=== PATIENT | female | born 1985 | race African-American/Black ===

== ENCOUNTER 2017-10-14 13:13 | Emergency (ER) | payer SELFPAY ==
[2017-10-14 14:47] VITALS: PULSE 72; RESP 18; TEMP 36.2; O2SAT 98; BMI 46.2
--- NOTE | 2017-10-14 15:14 | HMH.EDUTC ---
[facility] [place] Impression: Sinusitis Qualifiers: Sinusitis location: other Chronicity: unspecified Qualified Code(s): J32.9 - Chronic sinusitis, unspecified Disposition: Home, Self-Care Condition on Discharge: Good Instructions: Sinusitis, Sinus Headache, Cough, DI for Sinusitis Additional Instructions: * Monitor Temp. Tylenol and/or Ibuprofen as needed. ER if fever is no less than 101 despite alternating Tylenol and Ibuprofen * Encourage fluids, water, Gatorade, powerade, pedialyte if /toddler/or child * Warm salt water gargles for throat irritation *Warm fluids *Sore throat lozenges *Sleep elevated *humidifier or vaporizer Lots of rest Increase fluids, water, Gatorade, powerade *Flonase 2 sprays each nostril daily but may take 2-3 days to notice improvement with it *Bromfed may cause drowsiness. Know how it effect you or your child. Before driving, caring for small children or sending your child to school *Your throat swab was sent to lab for culture. Those results area typically sent to your primary care physician. Be sure to follow up in 2-3 days if no improvement so they can review those results and treat if necessary If you dont have primary care I recommend you get one, but in the mean time you will have to return to a walk in clinic Follow up IMMEDIATELY for new or worsening of symptoms OR no noticeable improvement over the next 48-72 hours. 911 immediately for any life threatening symptoms such as chest pain or difficulty breathing Prescriptions: Amoxicillin/Potassium Clav [Augmentin 875-125 Tablet] 1 tab PO Q12H #14 tab Brompheniramine/Pseudoephed/Dm [Bromfed DM Cough Syrup 5mL] 10 ml PO Q4H PRN #200 syrup PRN Reason: Cough predniSONE [Prednisone 20mg Tab] 20 mg PO BID #10 tab Referrals: Jonathan Chen APRN [Primary Care Provider] - Time of Disposition: 15:22 Medical Decision Making Vital Signs: 10/14/17 14:47 Temperature 97.2 F L Temperature Source Temporal Artery Scan Pulse Rate [Right] 72 Respiratory Rate 18 02 Sat by Pulse Oximetry 98 - Lab Data Lab Results 10/14/17 14:56: Influenza Type A Ag Negative, Influenza Type B Ag Negative 10/14/17 14:56: Strep Scn Rapid [facility] Orders (Tests/Meds): ORDERS Category Date Time Status Strep Screen Confirmation Stat Micro 10/14/17 14:56 Received - Jakob Inquiry Pt receiving controlled substance: No Jakob was queried for this patient: No [facility] [place] - General Stated complaint: sore throat/ fever Mode of Arrival: Ambulatory Source of Information: Patient Limitations: No Limitations Description of Symptoms (Recalled from Triage Doc. by RN): SORE THROAT, FEVER 2 DAYS HEENT Symptoms (Recalled from RN notes): Yes Resp Symptoms (Recalled from RN notes): No Skin Symptoms (Recalled from RN notes): No MS Symptoms (Recalled from RN notes): No Functional Status (Recalled from RN notes): N - History of Present Illness Provider Complaint: Patient state that she has not felt well in 3 days now State that she has had a fever on and off that has been as high as 103.2 State that she was sent home from work today due to fever and advised that she needed to get checked for flu - Related Data Previous Rx's Medication Instructions Recorded Amoxicillin/Potassium Clav 1 tab PO Q12H #14 tab 10/14/17 [Augmentin 875-125 Tablet] Brompheniramine/Pseudoephed/Dm 10 ml PO Q4H PRN #200 syrup 10/14/17 [Bromfed DM Cough Syrup 5mL] predniSONE [Prednisone 20mg 20 mg PO BID #10 tab 10/14/17 Tab] Allergies Allergy/AdvReac Type Severity Reaction Status Date / Time No Known Allergies Allergy Unverified 09/29/17 14:44 - Worker's Comp Is this a Worker's Comp case?: No [facility] History - *Social History Alcohol Intake: never - Psychiatric History Expresses thoughts of harming self/others: None Suicide Plan Description: No Plan - Constitutional Reports chills, Reports fever(s) - ENT Reports nasal c
[2017-10-14 15:15] LABS: UTC Influenza A Antigen Negative (Negative); UTC Influenza B Antigen Negative (Negative)
--- NOTE | 2017-10-14 15:18 | ED_ITS ---
[facility] [place] Clinical Impression: Sinusitis Qualifiers: Sinusitis location: other Chronicity: unspecified Qualified Code(s): J32.9 - Chronic sinusitis, unspecified Disposition: Home, Self-Care Condition on Discharge: Good Instructions: Sinusitis, Sinus Headache, Cough, DI for Sinusitis Additional Instructions: * Monitor Temp. Tylenol and/or Ibuprofen as needed. ER if fever is no less than 101 despite alternating Tylenol and Ibuprofen * Encourage fluids, water, Gatorade, powerade, pedialyte if /toddler/or child * Warm salt water gargles for throat irritation *Warm fluids *Sore throat lozenges *Sleep elevated *humidifier or vaporizer Lots of rest Increase fluids, water, Gatorade, powerade *Flonase 2 sprays each nostril daily but may take 2-3 days to notice improvement with it *Bromfed may cause drowsiness. Know how it effect you or your child. Before driving, caring for small children or sending your child to school *Your throat swab was sent to lab for culture. Those results area typically sent to your primary care physician. Be sure to follow up in 2-3 days if no improvement so they can review those results and treat if necessary If you don? t have primary care I recommend you get one, but in the mean time you will have to return to a walk in clinic Follow up IMMEDIATELY for new or worsening of symptoms OR no noticeable improvement over the next 48-72 hours. 911 immediately for any life threatening symptoms such as chest pain or difficulty breathing Prescriptions: Amoxicillin/Potassium Clav [Augmentin 875-125 Tablet] 1 tab PO Q12H #14 tab Brompheniramine/Pseudoephed/Dm [Bromfed DM Cough Syrup 5mL] 10 ml PO Q4H PRN # 200 syrup PRN Reason: Cough predniSONE [Prednisone 20mg Tab] 20 mg PO BID #10 tab Referrals: Jonathan Chen APRN [Primary Care Provider] - Time of Disposition: 15:22 Medical Decision Making Vital Signs: 10/14/17 14:47 Temperature 97.2 F L Temperature Source Temporal Artery Scan Pulse Rate [Right] 72 Respiratory Rate 18 02 Sat by Pulse Oximetry 98 - Lab Data Lab Results 10/14/17 14:56: Influenza Type A Ag Negative, Influenza Type B Ag Negative 10/14/17 14:56: Strep Scn Rapid Clinic [facility] Orders (Tests/Meds): ORDERS Category Date Time Status Strep Screen Confirmation Stat Micro 10/14/17 14:56 Received - Jakob Inquiry Pt receiving controlled substance: No Jakob was queried for this patient: No [facility] [place] HPI - General Stated complaint: sore throat/ fever Mode of Arrival: Ambulatory Source of Information: Patient Limitations: No Limitations Description of Symptoms (Recalled from Triage Doc. by RN): SORE THROAT, FEVER 2 DAYS HEENT Symptoms (Recalled from RN notes): Yes Resp Symptoms (Recalled from RN notes): No Skin Symptoms (Recalled from RN notes): No MS Symptoms (Recalled from RN notes): No Functional Status (Recalled from RN notes): N - History of Present Illness Provider Complaint: Patient state that she has not felt well in 3 days now State that she has had a fever on and off that has been as high as 103.2 State that she was sent home from work today due to fever and advised that she needed to get checked for flu - Related Data Previous Rx's Medication Instructions Recorded Amoxicillin/Potassium Clav 1 tab PO Q12H #14 tab 10/14/17 [Augmentin 875-125 Tablet] Brompheniramine/Pseudoephed/Dm 10 ml PO Q4H PRN #200 syrup 10/14/17
== END 2017-10-14 15:27 | disposition home or self-care (01) ==
PROVIDERS: Emergency Provider Nurse Practitioner; Family Provider Nurse Practitioner Family; PCP Nurse Practitioner Family
DX: J32.9 Chronic sinusitis, unspecified (principal)
CPT/HCPCS: 87276; 87430; 87804; 87880; 99202

== ENCOUNTER 2017-12-01 17:24 | Emergency (ER) | payer OTHER, SELFPAY ==
[2017-12-01 18:04] VITALS: BP 140/78; PULSE 106; RESP 20; TEMP 37.1; O2SAT 98; BMI 46.2
[2017-12-01 18:21] LABS: UTC Influenza A Antigen Negative (Negative); UTC Influenza B Antigen Negative (Negative)
--- NOTE | 2017-12-01 18:28 | HMH.EDUTC ---
[facility] [place]ression: Viral upper respiratory illness Disposition: Home, Self-Care Condition on Discharge: Good Instructions: DI for Viral Upper Respiratory Infection -- Adult Additional Instructions: * No sign of bacterial infection. Likely viral. Sounds like it is starting to improve. Virus can take 7-14 days to run their course * Monitor Temp. Tylenol every 4 hours as needed no more then 5 times a day or 4000mg in 24 hours and/or ibuprofen every 6 hours as needed no more then 3200mg in 24 hours (as long as your primary care doctor has told you that it is ok to take both) for fever/aches/pain. ER if fever no less than 101 despite tylenol and ibuprofen * Encourage fluids, water, gatorade, powerade, pedialyte if infant/toddler/child * warm salt water gargles * warm fluids * sore throat lozenges * sleep elevated * humidifier/vaporizer Referrals: Jonathan Chen APRN [Primary Care Provider] - (IMMEDIATELY for new or worsening symptoms OR no continued improvement over the next 48-72 hours. 911 for difficulty breathing or swallowing. ) Forms: Work/School Release Time of Disposition: 18:37 Medical Decision Making Vital Signs: 12/01/17 18:04 Temperature 98.8 F Temperature Source Temporal Artery Scan Pulse Rate [Left Brachial] 106 H Respiratory Rate 20 Blood Pressure [Left Arm] 140/78 Blood Pressure Mean [Left Arm] 98 Blood Pressure Source [Left Arm] Automatic Cuff Blood Pressure Position [Left Arm] Sitting 02 Sat by Pulse Oximetry 98 Oxygen Delivery Method Room Air - Lab Data Lab results reviewed: Yes: I reviewed the patient's lab results. Lab Results 12/01/17 18:19: Influenza Type A Ag Negative, Influenza Type B Ag Negative - Jakob Inquiry Pt receiving controlled substance: No [facility] [place] - General Stated complaint: to checked for flu Time Seen by Provider: 12/01/17 18:28 Mode of Arrival: Ambulatory Source of Information: Patient Limitations: No Limitations Description of Symptoms (Recalled from Triage Doc. by RN): REQUESTING FLU SWAB HEENT Symptoms (Recalled from RN notes): No Resp Symptoms (Recalled from RN notes): Yes (REQUESTING FLU SWAB) Skin Symptoms (Recalled from RN notes): No MS Symptoms (Recalled from RN notes): No Functional Status (Recalled from RN notes): N/A - History of Present Illness Provider Complaint: c/o My boss sent me here to be checked for the flu . Not feeling well since , 5 days ago. Started w/ mild cough. Worsening throughout the day. Cough already better only a little now . Fever started day 2 and last 2-3 days. Resolved. Diarrhea intermittent. Aches and chills today. No known sick contacts. Denies sore throat. No consistent treatment prior to arrival. - Related Data Previous Rx's Medication Instructions Recorded Amoxicillin/Potassium Clav 1 tab PO Q12H #14 tab 10/14/17 [Augmentin 875-125 Tablet] Brompheniramine/Pseudoephed/Dm 10 ml PO Q4H PRN #200 syrup 10/14/17 [Bromfed DM Cough Syrup 5mL] predniSONE [Prednisone 20mg 20 mg PO BID #10 tab 10/14/17 Tab] Allergies Allergy/AdvReac Type Severity Reaction Status Date / Time No Known Allergies Allergy Unverified 09/29/17 14:44 - Worker's Comp Is this a Worker's Comp case?: No [facility] History I have reviewed the patient's past medical history: Yes Medical History: Denies:: Cancer, Diabetes Mellitus Type 1, Diabetes Mellitus Type 2, Hypertension, MRSA Other Surgeries: Yes: No Previous Surgery Amputation: No Fractures: No - Social History Smoking Status: Never smoker Alcohol Intake: never - Psychiatric History Expresses thoughts of harming self/others: None Suicide Plan Description: No Plan ROS Obtained: Yes Systems reviewed as appropriate & no additional complaints - Constitutional Constitutional: Reports as per HPI, Reports fatigue (since day 2), Denies poor appetite - Eyes Eyes: Denies eye discharge, Denies eye pain, Denies other (eye redness) - ENT
--- NOTE | 2017-12-01 18:35 | ED_ITS ---
[facility] [place] Dis[place] Clinical Impression: Viral upper respiratory illness Disposition: Home, Self-Care Condition on Discharge: Good Instructions: DI for Viral Upper Respiratory Infection -- Adult Additional Instructions: * No sign of bacterial infection. Likely viral. Sounds like it is starting to improve. Virus can take 7-14 days to run their course * Monitor Temp. Tylenol every 4 hours as needed no more then 5 times a day or 4000mg in 24 hours and/or ibuprofen every 6 hours as needed no more then 3200mg in 24 hours (as long as your primary care doctor has told you that it is ok to take both) for fever/aches/pain. ER if fever no less than 101 despite tylenol and ibuprofen * Encourage fluids, water, gatorade, powerade, pedialyte if infant/toddler/ child * warm salt water gargles * warm fluids * sore throat lozenges * sleep elevated * humidifier/vaporizer Referrals: Jonathan Chen APRN [Primary Care Provider] - (IMMEDIATELY for new or worsening symptoms OR no continued improvement over the next 48-72 hours. 911 for difficulty breathing or swallowing. ) Forms: Work/School Release Time of Disposition: 18:37 Medical Decision Making Vital Signs: 12/01/17 18:04 Temperature 98.8 F Temperature Source Temporal Artery Scan Pulse Rate [Left Brachial] 106 H Respiratory Rate 20 Blood Pressure [Left Arm] 140/78 Blood Pressure Mean [Left Arm] 98 Blood Pressure Source [Left Arm] Automatic Cuff Blood Pressure Position [Left Arm] Sitting 02 Sat by Pulse Oximetry 98 Oxygen Delivery Method Room Air - Lab Data Lab results reviewed: Yes: I reviewed the patient's lab results. Lab Results 12/01/17 18:19: Influenza Type A Ag Negative, Influenza Type B Ag Negative - Jakob Inquiry Pt receiving controlled substance: No [facility] [place] HPI - General Stated complaint: to checked for flu Time Seen by Provider: 12/01/17 18:28 Mode of Arrival: Ambulatory Source of Information: Patient Limitations: No Limitations Description of Symptoms (Recalled from Triage Doc. by RN): REQUESTING FLU SWAB HEENT Symptoms (Recalled from RN notes): No Resp Symptoms (Recalled from RN notes): Yes (REQUESTING FLU SWAB) Skin Symptoms (Recalled from RN notes): No MS Symptoms (Recalled from RN notes): No Functional Status (Recalled from RN notes): N/A - History of Present Illness Provider Complaint: c/o My boss sent me here to be checked for the flu . Not feeling well since , 5 days ago. Started w/ mild cough. Worsening throughout the day. Cough already better only a little now . Fever started day 2 and last 2-3 days. Resolved. Diarrhea intermittent. Aches and chills today. No known sick contacts. Denies sore throat. No consistent treatment prior to arrival. - Related Data Previous Rx's Medication Instructions Recorded Amoxicillin/Potassium Clav 1 tab PO Q12H #14 tab 10/14/17 [Augmentin 875-125 Tablet] Brompheniramine/Pseudoephed/Dm 10 ml PO Q4H PRN #200 syrup 10/14/17 [Bromfed DM Cough Syrup 5mL] predniSONE [Prednisone 20mg 20 mg PO BID #10 tab 10/14/17 Tab] Allergies Allergy/AdvReac Type Severity Reaction Status Date / Time No Known Allergies Allergy Unverified 09/29/17 14:44 - Worker's Comp Is this a Worker's Comp case?: No [facility] History I have reviewed the patient's past medical history: Yes Medical History: Denies:: Naresh
[2017-12-01 18:45] VITALS: BP 140/78; PULSE 106; RESP 22; TEMP 37.1; O2SAT 98
== END 2017-12-01 18:46 | disposition home or self-care (01) ==
PROVIDERS: Emergency Provider Nurse Practitioner Family; Family Provider Nurse Practitioner Family; PCP Nurse Practitioner Family
DX: J06.9 Acute upper respiratory infection, unspecified (principal)
CPT/HCPCS: 87804; 99202

== ENCOUNTER → 2018-07-20 07:31 | Outpatient (CLI) | payer BC, SELFPAY ==
[2018-07-20 10:16] LABS: Glucose 1 Hour 99 mg/dL (74-106); Glucose,Fasting 102 mg/dL (60-105)
== END ==
PROVIDERS: PCP Nurse Practitioner Family; Visit Provider Obstetrics & Gynecology
DX: N77.1 Vaginitis, vulvitis and vulvovaginitis in diseases classified elsewhere (principal)
CPT/HCPCS: 36415; 82951

== ENCOUNTER → 2018-11-12 11:11 | Outpatient (CLI) | payer BC, SELFPAY ==
[2018-11-12 11:56] LABS: Basophils % 0.4 % (0.1-2.0); Eosinophils # 0.1 K/mm3 (0.0-0.4); Eosinophils % 1.2 % (0.1-12.0); Hematocrit 38.5 % (37.0-47.0); Hemoglobin 11.1 g/dL (12.2-16.2); Lymphocytes # 3.6 K/mm3 (0.7-4.5); Lymphocytes % 56.3 % (10-50); Mean Corpuscular HGB Conc 28.8 g/dL (31.8-35.4); Mean Corpuscular Hemoglobin 22.9 pg (27.0-31.2); Mean Corpuscular Volume 79.5 fl (81-99); Monocytes # 0.3 K/mm3 (0.1-1.0); Monocytes % 3.9 % (1.7-9.3); Neutrophils # 2.4 K/mm3 (1.8-7.8); Neutrophils % 38.2 % (37.0-80.0); Platelet Count 254 K/mm3 (142-424); Red Blood Count 4.85 M/mm3 (4.20-5.40); Red Cell Distribution Width 14.7 % (11.5-17.5); White Blood Count 6.4 K/mm3 (4.8-10.8)
[2018-11-12 12:07] LABS: MANUAL DIFFERENTIAL MANUAL DIFFERENTIAL (MANUAL DIFF)
[2018-11-12 12:30] LABS: HCG Qualitative, Serum Negative (Negative)
[2018-11-12 12:50] LABS: Lymphocytes % 57 % (10-50); Monocytes % 5 % (2-9); Neutrophils % 38 % (42-76); Total Cells Counted 100
[2018-11-12 12:51] LABS: Platelet Estimate Normal
[2018-11-12 12:52] LABS: Hypochromasia 2+; Microcytosis 1+
[2018-11-12 13:12] LABS: Alanine Aminotransferase 33 U/L (12-78); Albumin Level 3.6 gm/dL (3.4-5.0); Albumin/Globulin Ratio 0.9 (1.1-1.8); Alkaline Phosphatase 78 U/L (46-116); Anion Gap 14.5 mEq/L (5-15); Aspartate Amino Transferase 14 U/L (15-37); Bilirubin,Total 0.2 mg/dL (0.2-1.0); Blood Urea Nitrogen 13 mg/dL (7-18); Calcium 9.4 mg/dL (8.5-10.1); Carbon Dioxide 26 mmol/L (21.0-32.0); Chloride 104 mmol/L (98-107); Chol/HDL Ratio 7.6 (1-3.5); Cholesterol 219 mg/dL (140-200); Creatinine,Serum 0.84 mg/dL (0.55-1.02); Estimated Glomerular Filt Rate 78 ml/min (>60); GFR (African American) 94 ML/MIN (>60); Globulin 3.8 gm/dl (1.3-3.2); Glucose 91 mg/dL (74-106); HCG,Quantitative 0 mIU/mL; HDL Cholesterol 29 mg/dL (29-89); LDL Cholesterol 153 mg/dL (0-130); Potassium 4.5 mmoL/L (3.5-5.1); Sodium 140 mmol/L (136-145); T4 (Thyroxine) 5.2 ug/dl (4.7-13.3); Thyroid Stimulating Hormone 2.15 uIU/ml (0.358-3.740); Total Protein,Serum 7.4 gm/dL (6.4-8.2); Triglycerides 187 mg/dL (30-200); VLDL Cholesterol 37 mg/dL (0-40)
== END ==
PROVIDERS: Visit Provider Nurse Practitioner Family
DX: I10 Essential (primary) hypertension (principal); E66.9 Obesity, unspecified; N91.2 Amenorrhea, unspecified
CPT/HCPCS: 36415; 80053; 80061; 84436; 84443; 84702; 84703; 85007; 85025

== ENCOUNTER → 2019-01-21 16:46 | Outpatient (CLI) | payer BC, SELFPAY | PROVIDERS: Visit Provider Nurse Practitioner Family | DX: M54.9 Dorsalgia, unspecified (principal); R10.9 Unspecified abdominal pain | CPT/HCPCS: 87086 ==

== ENCOUNTER → 2019-12-01 11:58 | Outpatient (CLI) | payer BC, SELFPAY ==
[2019-12-01 12:21] LABS: Basophils % 0.4 % (0.1-2.0); Eosinophils # 0.1 K/mm3 (0.0-0.4); Eosinophils % 1.3 % (0.1-12.0); Hematocrit 37.6 % (37.0-47.0); Hemoglobin 10.9 g/dL (12.2-16.2); Lymphocytes # 3.5 K/mm3 (0.7-4.5); Lymphocytes % 48.5 % (10-50); Mean Corpuscular HGB Conc 29.1 g/dL (31.8-35.4); Mean Corpuscular Hemoglobin 22.9 pg (27.0-31.2); Mean Corpuscular Volume 78.8 fl (81-99); Mean Platelet Volume 7.5 fl (7.4-10.4); Monocytes # 0.3 K/mm3 (0.1-1.0); Monocytes % 4.1 % (1.7-9.3); Neutrophils # 3.3 K/mm3 (1.8-7.8); Neutrophils % 45.7 % (37.0-80.0); Platelet Count 256 K/mm3 (142-424); Red Blood Count 4.77 M/mm3 (4.20-5.40); Red Cell Distribution Width 14.8 % (11.5-17.5); White Blood Count 7.2 K/mm3 (4.8-10.8)
[2019-12-01 16:28] LABS: Alanine Aminotransferase 23 U/L (12-78); Albumin Level 4.3 g/dl (3.5-5.0); Albumin/Globulin Ratio 1.4 (1.1-1.8); Alkaline Phosphatase 64 U/L (38-126); Aspartate Amino Transferase 24 U/L (14-36); Bilirubin,Total 0.2 mg/dl (0.2-1.3); Blood Urea Nitrogen 14 mg/dl (7-17); Calcium 9.8 mg/dl (8.4-10.2); Carbon Dioxide 27 mmol/L (22.0-30.0); Chloride 104 mmol/L (98-107); Chol/HDL Ratio 8.5 (1-3.5); Cholesterol 203 mg/dl (140-200); Estimated Glomerular Filt Rate 72 ml/min (>60); GFR (African American) 87 ML/MIN (>60); Globulin 3.1 g/dL (1.3-3.2); Glucose 98 mg/dl (74-100); HDL Cholesterol 24 mg/dl (40-60); Sodium 138 mmol/L (136-145); Total Protein,Serum 7.4 g/dl (6.3-8.2); Triglycerides 253 mg/dl (30-150); VLDL Cholesterol 51 mg/dL (0-40)
[2019-12-01 16:40] LABS: Direct LDL Cholesterol 152.76 mg/dL (100-129)
[2019-12-01 17:00] LABS: Thyroid Stimulating Hormone 1.93 uIU/mL (0.465-4.68)
[2019-12-02 10:37] LABS: Vitamin D 25 Hydroxy 8.5 ng/mL (30.0-100.0)
== END ==
PROVIDERS: Visit Provider Nurse Practitioner Family
DX: I10 Essential (primary) hypertension (principal); R51 Headache; E55.9 Vitamin D deficiency, unspecified
CPT/HCPCS: 36415; 80053; 80061; 82652; 84436; 84443; 85025

== ENCOUNTER → 2019-12-14 07:55 | Outpatient (CLI) | payer BC, SELFPAY ==
--- NOTE | 2019-12-14 07:55 | CT_ITS ---
PROCEDURE: CT HEAD/BRAIN WO CON CLINICAL INDICATION: headache Frontal the COMPARISON: No exams were available for comparison TECHNIQUE: Axial images obtained. All CT scans at the facility use one or more dose reduction, viz: automated exposure control, ma/kV adjustment per patient size (including targeted exams where dose is matched to indication, i.e. head), or iterative reconstruction technique. FINDINGS: No midline shift, mass effect, intracranial hemorrhage, hydrocephalus, or extra-axial fluid collection is evident. The calvarium has an unremarkable appearance. No mastoid effusion. No sinus air-fluid level. There is a lobular area of mucosal thickening in the left sphenoid sinus laterally and could be due to small retention cyst at 9 mm. IMPRESSION: No acute intracranial finding Dictated by: Williams Amador MD 12/14/2019 19:44 Electronically signed by Williams Amador MD in [place] 12/14/2019 19:44
[2019-12-14 18:41] LABS: Hemoglobin A1C 5.6 % (4.0-6.0)
== END ==
PROVIDERS: PCP Nurse Practitioner Family; Visit Provider Nurse Practitioner Family
DX: R51 Headache (principal); I10 Essential (primary) hypertension
CPT/HCPCS: 36415; 70450; 83036

== ENCOUNTER → 2019-12-14 08:15 | Outpatient (CLI) | payer BC, SELFPAY | PROVIDERS: Visit Provider Nurse Practitioner Family | DX: E78.5 Hyperlipidemia, unspecified (principal) | CPT/HCPCS: 36415; 83036 ==

== ENCOUNTER → 2020-01-06 13:45 | Outpatient (CLI) | payer BC, SELFPAY ==
--- NOTE | 2020-01-10 10:23 | PC.NURSE ---
Patient brought device back with no data - no charge
== END ==
PROVIDERS: PCP Nurse Practitioner Family; Visit Provider Specialist
DX: G43.019 Migraine without aura, intractable, without status migrainosus (principal); G47.10 Hypersomnia, unspecified; G47.30 Sleep apnea, unspecified; I10 Essential (primary) hypertension; R06.83 Snoring; R51 Headache; R53.83 Other fatigue; Z72.0 Tobacco use

== ENCOUNTER 2020-01-30 09:25 | Emergency (ER) | payer BC, SELFPAY ==
[2020-01-30 09:38] VITALS: BP 136/75; PULSE 57; RESP 16; TEMP 36.8; O2SAT 99; BMI 49.8
[2020-01-30 09:46] LABS: Microscopic, Urine URINE MICROSCOPIC (MICROSCOPIC)
[2020-01-30 09:47] LABS: Appearance,Urine SL CLOUDY (Clear); Bilirubin,Urine Negative (Negative); Blood, Urine TRACE-I (Negative); Color,Urine YELLOW (Yellow); Glucose,Urine (UA) Negative (Negative); Ketones,Urine Negative (Negative); Leukocyte Esterase,Urine Negative (Negative); Nitrate,Urine Negative (Negative); Protein,Urine Negative (Negative); Specific Gravity, Urine >= 1.030 (1.005-1.030); Urobilinogen,Urine 0.2 EU/dl (0.2)
[2020-01-30 09:50] LABS: Urine Pregnancy, HCG Qual. Negative (Negative)
[2020-01-30 09:54] LABS: Bacteria,Urine Trace /lpf; RBC,Urine Occasional #/hpf (0-3); WBC,Urine Occasional #/hpf (0-3)
[2020-01-30 10:05] LABS: Basophils # 0.1 K/mm3 (0-0.2); Basophils % 0.8 % (0.1-2.0); Eosinophils # 0.2 K/mm3 (0.0-0.4); Eosinophils % 2.7 % (0.1-12.0); Hematocrit 37.6 % (37.0-47.0); Hemoglobin 11.1 g/dL (12.2-16.2); Lymphocytes # 3.2 K/mm3 (0.7-4.5); Lymphocytes % 49.6 % (10-50); Mean Corpuscular HGB Conc 29.4 g/dL (31.8-35.4); Mean Corpuscular Hemoglobin 23.1 pg (27.0-31.2); Mean Corpuscular Volume 78.7 fl (81-99); Mean Platelet Volume 8.2 fl (7.4-10.4); Monocytes # 0.4 K/mm3 (0.1-1.0); Monocytes % 5.5 % (1.7-9.3); Neutrophils # 2.7 K/mm3 (1.8-7.8); Neutrophils % 41.4 % (37.0-80.0); Platelet Count 288 K/mm3 (142-424); Red Blood Count 4.78 M/mm3 (4.20-5.40); Red Cell Distribution Width 14.6 % (11.5-17.5); White Blood Count 6.5 K/mm3 (4.8-10.8)
[2020-01-30 10:07] LABS: Alanine Aminotransferase 21 U/L (12-78); Albumin Level 4.5 g/dl (3.5-5.0); Albumin/Globulin Ratio 1.3 (1.1-1.8); Alkaline Phosphatase 74 U/L (38-126); Anion Gap 10.3 mEq/L (5-15); Aspartate Amino Transferase 22 U/L (14-36); Bilirubin,Total 0.2 mg/dl (0.2-1.3); Blood Urea Nitrogen 13 mg/dl (7-17); Calcium 9.8 mg/dl (8.4-10.2); Carbon Dioxide 27 mmol/L (22.0-30.0); Chloride 105 mmol/L (98-107); Creatinine Clearance Estimated 86 mL/min (50-200); Estimated Glomerular Filt Rate 72 ml/min (>60); GFR (African American) 87 ML/MIN (>60); Globulin 3.4 g/dL (1.3-3.2); Glucose 93 mg/dl (74-100); Potassium 4.3 mmoL/L (3.5-5.1); Sodium 138 mmol/L (136-145); Total Protein,Serum 7.9 g/dl (6.3-8.2)
--- NOTE | 2020-01-30 10:11 | US_ITS ---
PROCEDURE: US TRANSVAGINAL CLINICAL INDICATION: llq abd pain Pelvic pain COMPARISON: No exams were available for comparison FINDINGS: UTERUS: 8cm x 3cmx 3cm with a combined endometrial thickness of 2.9mm Nabothian cysts are present measuring up to 9 mm. No uterine mass LEFT OVARY: [id number] with a volume of 7.2ml. RIGHT OVARY: [id number] with a volume of 8.1ml. No cul-de-sac fluid. No adnexal mass. IMPRESSION: Negative pelvic ultrasound Dictated by: Williams Amador MD 01/30/2020 13:14 Electronically signed by Williams Amador MD in [place] 01/30/2020 13:14
[2020-01-30 10:17] VITALS: BP 133/81; PULSE 70; RESP 17; TEMP 36.6; O2SAT 100
--- NOTE | 2020-01-30 10:18 | PC.NURSE ---
Pt to radiology at this time
--- NOTE | 2020-01-30 10:39 | PC.NURSE ---
Pt back from radiology
--- NOTE | 2020-01-30 11:48 | HMH.EDABDPAI ---
ED Disposition Clinical Impression: Obesity (BMI 30-39.9), Vitamin D deficiency, Back Pain, HTN (hypertension), benign, Abdominal pain, PCO (posterior capsular opacification), bilateral Disposition: Home, Self-Care Condition on Discharge: Good Instructions: DI for Acute Abdomen Additional Instructions: Please follow-up with your [facility]. Prescriptions: Metformin HCl 500 mg PO DAILY 30 Days #30 solution [id number] Ketorolac Tromethamine [Toradol 10mg tablet] 10 mg PO Q6H 5 Days #20 tab Transmission Status: [id number] Referrals: Jonathan Chen APRN [Primary Care Provider] - - Critical Care Critical Care Time: No Attestation: On 01/30/20, the high probability of a clinically significant, sudden or life threatening deterioration of the following system(s) required my full and direct attention, intervention and personal management. The time I documented below is in addition to time spent performing reported procedures but includes the following listed in this critical care notation. Medical Decision Making - Medical Records Medical records reviewed: Yes: I reviewed the patient's medical records. - Jakob Inquiry Pt receiving controlled substance: No Vital Signs: 01/30/20 09:38 01/30/20 10:17 Temperature 98.2 F 97.8 F Temperature Source Oral Oral Pulse Rate [Left Radial] 57 L 70 Respiratory Rate 16 17 Blood Pressure [Right Arm] 136/75 133/81 Blood Pressure Mean [Right Arm] 95 98 Blood Pressure Source [Right Arm] Automatic Cuff Blood Pressure Position [Right Arm] Sitting Sitting 02 Sat by Pulse Oximetry 99 100 Oxygen Delivery Method Room Air Room Air - Lab Data Lab results reviewed: Yes: I reviewed the patient's lab results. Lab Results 01/30/20 09:25: Urine Color Yellow, Urine Appearance Sl cloudy, Urine pH 5.0, Ur Specific [place] >= 1.030, Urine Protein Negative, Urine Glucose (UA) Negative, Urine Ketones Negative, Urine Blood Trace-i, Urine Nitrate Negative, Urine Bilirubin Negative, Urine Urobilinogen 0.2, Ur Leukocyte Esterase Negative, Urine RBC Occasional, Urine WBC Occasional, Ur Squamous Epith Cells 3-5, Urine Bacteria Trace 01/30/20 09:25: Urine HCG, Qual Negative 01/30/20 09:45: WBC 6.5, RBC 4.78, Hgb 11.1 L, Hct 37.6, MCV 78.7 L, MCH 23.1 L, MCHC 29.4 L, RDW 14.6, Plt Count 288, MPV 8.2, Neut % (Auto) 41.4, Lymph % (Auto) 49.6, [place] % (Auto) 5.5, Eos % (Auto) 2.7, Baso % (Auto) 0.8, Neut # (Auto) 2.7, Lymph # (Auto) 3.2, [place] # (Auto) 0.4, Eos # (Auto) 0.2, Baso # (Auto) 0.1 01/30/20 09:45: Sodium 138, Potassium 4.3, Chloride 105, Carbon Dioxide 27, Anion Gap 10.3, BUN 13, Creatinine 0.90, Estimated Creat Clear 86, Estimated GFR 72, Est GFR ( Amer) 87, Glucose 93, Calcium 9.8, Total Bilirubin 0.2, AST 22, ALT 21, Alkaline Phosphatase 74, Total Protein 7.9, Albumin 4.5, Globulin 3.4 H, Albumin/Globulin Ratio 1.3 Result diagrams: 01/30/20 09:45 01/30/20 09:45 Orders (Tests/Meds): ED MEDICATIONS Discontinued Medications Generic Name Dose Route Start Last Admin Trade Name Owen PRN Reason Stop Dose Admin Ketorolac Tromethamine 30 mg 01/30/20 09:43 01/30/20 09:53 Toradol 30mg/Ml Vial IV 01/30/20 09:44 30 mg ONCE ONE Administration ORDERS Category Date Time Status US transvaginal Stat Exams 01/30/20 10:11 Taken - US Data US Images: Pelvis ED US Reviewed: Yes: I have viewed radiologist's interpretation Preliminary Findings: Abnormal Pelvis (Patient's for polycystic ovarian syndrome) Abdominal Pain HPI - General Chief Complaint: Abdominal Pain Stated Complaint: left side pain Time Seen by Provider: 01/30/20 11:48 Mode of Arrival: Ambulatory Source of Information: Patient Limitations: No Limitations Description of Symptoms (Recalled from ER Triage Doc. by RN): to ed per pvt car with c/o llq abd pain x 1 week pt states I think it might be a ruptured cyst . pt denies any nausea, vomiting,
[2020-01-30 12:08] VITALS: BP 124/72; PULSE 78; RESP 16; TEMP 36.6; O2SAT 98
== END 2020-01-30 12:10 | disposition home or self-care (01) ==
PROVIDERS: Emergency Provider Family Medicine; PCP Nurse Practitioner Family
DX: R10.2 Pelvic and perineal pain (principal); H26.493 Other secondary cataract, bilateral; M54.5 Low back pain; E55.9 Vitamin D deficiency, unspecified; G43.709 Chronic migraine without aura, not intractable, without status migrainosus; F17.210 Nicotine dependence, cigarettes, uncomplicated; E66.9 Obesity, unspecified; Z68.42 Body mass index [BMI] 45.0-49.9, adult; I10 Essential (primary) hypertension; Z79.899 Other long term (current) drug therapy
CPT/HCPCS: 76830; 80053; 81001; 81025; 85025; 96374; 99283

== ENCOUNTER → 2020-01-31 10:29 | Outpatient (CLI) | payer BC, SELFPAY ==
--- NOTE | 2020-01-31 10:30 | CA_ITS ---
APPROVED REPORT EXAM: Comprehensive 2D, Doppler, and color-flow Echocardiogram Relief Man: Parul Mc RVT Ht: 5 ft 6 in Wt: 319lbs BSA: 2.44 BP: 106/72 mmHg Indications: CP,ABN EKG,HTN,HLD,SOA,HICKMAN,OBESITY,FATIGUE,SMOKER 2D Dimensions LVOT 2.71 cm (M/F) 1.5-2.5 M-Mode Dimensions RVDd 2.62 cm (0.9-2.6) LVDd 5.23 cm (3.5-5.7) LVDs 3.58 cm (3.5-5.7) IVSd 1.01 cm (0.6-1.1) PWd 0.52 cm (0.6-1.1) EF (Teich) 59.10% FS 31.50% EDV (Teich) 131.20 mL ESV (Teich) 53.70 mL LV Diastology E/A Ratio 0.46 Mitral Valve MV A Velocity 123.00 (40-130 cm/s) Left Ventricle Left atrium is normal size, left ventricle is normal size, there is no concentric left ventricular hypertrophy, visually estimated ejection fraction 55% with no regional wall motion abnormality. Diastolic parameters are within normal range. Right Ventricle Right atrium and right ventricular normal size and contractility. Aortic Valve Aortic valve is grossly normal, there is no aortic stenosis or aortic insufficiency. Mitral Valve Mitral valve is grossly normal, there is mild mitral regurgitation. Tricuspid Valve Tricuspid valve is grossly normal, there is mild tricuspid regurgitation. Pulmonic Valve Pulmonic valve is poorly visualized. Great Vessels Aortic root is normal size. Pericardium No significant pericardial effusion noted. Conclusion 1. Normal left ventricular size, preserved left ventricular systolic function, visually estimated ejection fraction 55% with no regional wall motion abnormality, diastolic parameters are within normal range. 2. Mild mitral and tricuspid regurgitation. 3. No significant pericardial effusion noted. Electronically signed by : Jose Juan Jimenez, 01/31/2020 19:58:41
== END ==
PROVIDERS: PCP Nurse Practitioner Family; Visit Provider Internal Medicine Cardiovascular Disease
DX: R07.9 Chest pain, unspecified (principal); R06.00 Dyspnea, unspecified; I10 Essential (primary) hypertension; R94.31 Abnormal electrocardiogram [ECG] [EKG]
CPT/HCPCS: 93306

== ENCOUNTER → 2020-03-26 09:48 | Outpatient (CLI) | payer BC, SELFPAY ==
[2020-03-26 13:12] LABS: Coronavirus 19 IgG Antibody Negative (Negative); Coronavirus 19 IgM Antibody Negative (Negative)
== END ==
PROVIDERS: PCP Nurse Practitioner Family; Visit Provider Emergency Medicine
DX: Z03.818 Encounter for observation for suspected exposure to other biological agents ruled out (principal)
CPT/HCPCS: 36415; 86328

== ENCOUNTER → 2020-05-23 09:53 | Outpatient (CLI) | payer BC, SELFPAY | PROVIDERS: PCP Nurse Practitioner Family; Visit Provider Physician Assistant | DX: Z20.828 Contact with and (suspected) exposure to other viral communicable diseases (principal) | CPT/HCPCS: U0003 ==

== ENCOUNTER → 2020-05-25 17:48 | Outpatient (CLI) | payer BC, SELFPAY ==
--- NOTE | 2020-05-29 14:37 | PC.NURSE ---
Patient came in for HST - no enough data on HST - failed test - no charge...
== END ==
PROVIDERS: PCP Nurse Practitioner Family; Visit Provider Specialist
DX: R53.83 Other fatigue (principal)

== ENCOUNTER 2020-11-07 09:27 | Emergency (ER) | payer BC, SELFPAY ==
[2020-11-07 09:28] VITALS: BP 141/71; PULSE 89; RESP 19; TEMP 36.9; O2SAT 100; BMI 51.6
--- NOTE | 2020-11-07 10:10 | HMH.EDUTC ---
[facility] [place] Clinical Impression: Encounter for laboratory testing for COVID-19 virus Disposition: Home, Self-Care Condition on Discharge: Good Instructions: DI for COVID-19 (Suspected or Confirmed ), Coronavirus Disease 2019, Preventing the Spread of Coronavirus Discharge Instructions Additional Instructions: *Monitor Temp, Over the counter Motrin or Tylenol as directed/as needed Tylenol every 4 hours and Motrin every 6 hours (as long as your family doctor has told you that you can take it) for fever or pain. and straight to ER if unable to lower temp less than 101.0 after medication given Follow up IMMEDIATELY for new or worsening symptoms or no Noticeable improvement over the next 48-72 hours. 911 for difficulty breathing or swallowing You were tested for today for COVID19 your test result should be back in the next 24-48 hours, you may call to the [facility] to see if your test results are back in the next 48 hours [phone] [facility] hours are 9am-9pm You was given a handout with instructions for Self Quarantine and Self isolation for while you wait on test results and what to do if they are positive If you are positive the Health Dept will be contacting you also Referrals: Jonathan Chen APRN [Primary Care Provider] - As needed Forms: Work/School Release Time of Disposition: 10:12 Medical Decision Making - Jakob Inquiry Pt receiving controlled substance: No Jakob was queried for this patient: No Vital Signs: 11/07/20 09:28 Temperature 98.4 F Temperature Source Oral Pulse Rate [Left Radial] 89 Respiratory Rate 19 Blood Pressure [Right Arm] 141/71 H Blood Pressure Mean [Right Arm] 94 02 Sat by Pulse Oximetry 100 Oxygen Delivery Method Room Air Orders (Tests/Meds): ORDERS Category Date Time Status Covid-19 Nasal PCR Sendout P&C Stat Lab 11/07/20 09:35 Ordered [facility] HPI - General Stated complaint: possible covid exposure Time Seen by Provider: 11/07/20 10:10 Mode of Arrival: Ambulatory Source of Information: Patient Limitations: No Limitations Description of Symptoms (Recalled from Triage Doc. by RN): wants a covid test due to her mother being sick. HEENT Symptoms (Recalled from RN notes): No Resp Symptoms (Recalled from RN notes): No Skin Symptoms (Recalled from RN notes): No MS Symptoms (Recalled from RN notes): No Functional Status (Recalled from RN notes): wnl - History of Present Illness Provider Complaint: Patient state that her mother is really sick and they think she may have COVID States that she lives with her and her work wanted her to get tested before she can return to work Denies any symptoms - Related Data Home Medications Medication Instructions Recorded Confirmed Ergocalciferol (Vitamin D2) 50,000 unit PO QWEEK 01/30/20 05/10/20 [Drisdol] Previous Rx's Medication Instructions Recorded armodafinil 150 mg tablet 150 mg PO DAILY #30 tab 05/10/20 propranolol 40 mg tablet 40 mg PO BID #60 tab 05/10/20 metronidazole 500 mg tablet 500 mg PO BID 5 Days #10 tab 10/26/20 Allergies Allergy/AdvReac Type Severity Reaction Status Date / Time No Known Allergies Allergy Verified 05/10/20 09:01 - Worker's Comp Is this a Worker's Comp case?: No [facility] History - Hepatitis A Screen Drug use history?: No High risk sexual behaviors?: No History of sexually transmitted infection?: No Currently employed?: No Childcare worker?: No Do you have indoor plumbing?: Yes Do you have electricity?: Yes Attestation statement:: This patient has been screened for Hepatitis A risk factors. I have reviewed the patient's past medical history: Yes Medical History: Reports:: Hypertension, Migraine Denies:: Cancer, Diabetes Mellitus Type 1, Diabetes Mellitus Type 2, MRSA Comment: PLANTAR FASCIITIS Other Surgeries: Yes: No Previous Surgery Amputation: No Fractures: No - Social History Smoking Status: Current every day smoker Tobacco Type: cigarettes Alcohol Intake:
[2020-11-07 10:28] VITALS: BP 141/71; PULSE 89; RESP 19; TEMP 36.9; O2SAT 100
[2020-11-08 08:03] LABS: Covid-19 Nasal PCR Sendout P&C Negative
== END 2020-11-07 10:30 | disposition home or self-care (01) ==
PROVIDERS: Emergency Provider Nurse Practitioner; PCP Nurse Practitioner Family
DX: Z20.822 Contact with and (suspected) exposure to COVID-19 (principal); I10 Essential (primary) hypertension; F17.210 Nicotine dependence, cigarettes, uncomplicated; Z79.899 Other long term (current) drug therapy
CPT/HCPCS: 99202; G0463; U0004

== ENCOUNTER 2020-12-19 06:14 | Emergency (ER) | payer BC, SELFPAY ==
[2020-12-19 06:23] VITALS: BP 145/75; PULSE 65; RESP 16; TEMP 36.7; O2SAT 95; BMI 48.4
--- NOTE | 2020-12-19 06:35 | CT_ITS ---
PROCEDURE: CT ABDOMEN PELVIS W CON CLINICAL INDICATION: abd bloating Pain with bloating and nausea COMPARISON: No exams were available for comparison TECHNIQUE: IV Contrast: 75ML Isovue 370 Oral Contrast None Axial images obtained with sagittal and coronal reformats. All CT scans at the facility use one or more dose reduction, viz: automated exposure control, ma/kV adjustment per patient size (including targeted exams where dose is matched to indication, i.e. head), or iterative reconstruction technique. FINDINGS: LOWER THORAX: No acute finding ABDOMEN & PELVIS: The liver, spleen, adrenal glands, pancreas, and kidneys have an unremarkable appearance. No evidence of appendicitis. No intestinal obstruction or free air. No acute bony findings. IMPRESSION: No acute finding Dictated by: Williams Amador MD 12/19/2020 08:34 Williams Amador MD in [place] 12/19/2020 08:34
[2020-12-19 06:46] LABS: Urine Pregnancy, HCG Qual. Negative (Negative)
[2020-12-19 06:47] LABS: Microscopic, Urine URINE MICROSCOPIC (MICROSCOPIC)
[2020-12-19 06:48] LABS: Appearance,Urine CLEAR (Clear); Bilirubin,Urine Negative (Negative); Blood, Urine Negative (Negative); Color,Urine YELLOW (Yellow); Glucose,Urine (UA) Negative (Negative); Ketones,Urine Negative (Negative); Leukocyte Esterase,Urine Negative (Negative); Nitrate,Urine Negative (Negative); PH,Urine 5.5 (5.0-8.5); Protein,Urine Negative (Negative); Specific Gravity, Urine >= 1.030 (1.005-1.030); Urobilinogen,Urine 0.2 EU/dl (0.2)
[2020-12-19 07:08] LABS: Squamous Epithelial Cell,Urine Occasional #/hpf (0-5)
[2020-12-19 07:08] LABS: Alanine Aminotransferase 22 U/L (12-78); Albumin Level 4.7 g/dl (3.5-5.0); Albumin/Globulin Ratio 1.3 (1.1-1.8); Alkaline Phosphatase 74 U/L (38-126); Amylase 66 U/L (30-110); Anion Gap 11.9 mEq/L (5-15); Aspartate Amino Transferase 31 U/L (14-36); Bilirubin,Total 0.3 mg/dl (0.2-1.3); Blood Urea Nitrogen 17 mg/dl (7-17); Calcium 9.5 mg/dl (8.4-10.2); Carbon Dioxide 25 mmol/L (22.0-30.0); Chloride 106 mmol/L (98-107); Creatinine Clearance Estimated 92 mL/min (50-200); Estimated Glomerular Filt Rate 82 ml/min (>60); GFR (African American) 99 ML/MIN (>60); Globulin 3.6 g/dL (1.3-3.2); Glucose 96 mg/dl (74-100); Lipase 111 U/L (23-300); Potassium 3.9 mmoL/L (3.5-5.1); Sodium 139 mmol/L (136-145); Total Protein,Serum 8.3 g/dl (6.3-8.2)
[2020-12-19 07:13] LABS: Basophils % 0.4 % (0.1-2.0); Eosinophils # 0.1 K/mm3 (0.0-0.4); Eosinophils % 1.4 % (0.1-12.0); Hematocrit 39.9 % (37.0-47.0); Hemoglobin 11.4 g/dL (12.2-16.2); Lymphocytes # 3.3 K/mm3 (0.7-4.5); Mean Corpuscular HGB Conc 28.4 g/dL (31.8-35.4); Mean Corpuscular Volume 80.9 fl (81-99); Mean Platelet Volume 7.7 fl (7.4-10.4); Monocytes # 0.3 K/mm3 (0.1-1.0); Monocytes % 5.1 % (1.7-9.3); Neutrophils # 2.3 K/mm3 (1.8-7.8); Platelet Count 238 K/mm3 (142-424); Red Blood Count 4.94 M/mm3 (4.20-5.40); Red Cell Distribution Width 15.2 % (11.5-17.5); White Blood Count 6.1 K/mm3 (4.8-10.8)
[2020-12-19 07:14] LABS: C-Reactive Protein 6.4 mg/L (0-4)
[2020-12-19 07:16] LABS: MANUAL DIFFERENTIAL MANUAL DIFFERENTIAL (MANUAL DIFF)
[2020-12-19 07:24] LABS: Procalcitonin 0.064 ng/mL (0.0-2.0)
[2020-12-19 07:28] VITALS: BP 146/91; PULSE 70; RESP 18; O2SAT 94
--- NOTE | 2020-12-19 07:39 | HMH.EDNVD ---
ED Disposition Clinical Impression: Abdominal pain Qualifiers: Abdominal location: right upper quadrant Qualified Code(s): R10.11 - Right upper quadrant pain Obesity Qualifiers: Obesity type: due to excess calories Obesity classification: adult class 3 (BMI >= 40) Serious obesity comorbidity presence: with serious comorbidity Body mass index: BMI 45.0-49.9 Qualified Code(s): E66.01 - Morbid (severe) obesity due to excess calories; Z68.42 - Body mass index [BMI] 45.0-49.9, adult Disposition: Home, Self-Care Condition on Discharge: Good Instructions: DI for Acute Abdominal Pain Additional Instructions: keep appt with pcp Referrals: Jonathan Chen APRN [Primary Care Provider] - - Critical Care Critical Care Time: No Attestation: On 12/19/20, the high probability of a clinically significant, sudden or life threatening deterioration of the following system(s) required my full and direct attention, intervention and personal management. The time I documented below is in addition to time spent performing reported procedures but includes the following listed in this critical care notation. Medical Decision Making - Medical Records Medical records reviewed: Yes: I reviewed the patient's medical records. - Jakob Inquiry Pt receiving controlled substance: No Vital Signs: 12/19/20 06:23 12/19/20 07:28 12/19/20 09:02 Temperature 98.1 F 98.1 F Temperature Source Oral Pulse Rate 70 Pulse Rate [Right] 65 70 Respiratory Rate 16 18 18 Blood Pressure 146/91 H Blood Pressure [Right Arm] 145/75 H 146/91 H Blood Pressure Mean [Right Arm] 98 109 Blood Pressure Source [Right Arm] Automatic Cuff Automatic Cuff Blood Pressure Position [Right Arm] Sitting Sitting 02 Sat by Pulse Oximetry 95 94 L Oxygen Delivery Method Room Air Room Air Room Air - Lab Data Lab results reviewed: Yes: I reviewed the patient's lab results. Lab Results 12/19/20 06:31: Urine Color Yellow, Urine Appearance Clear, Urine pH 5.5, Ur Specific [place] >= 1.030, Urine Protein Negative, Urine Glucose (UA) Negative, Urine Ketones Negative, Urine Blood Negative, Urine Nitrate Negative, Urine Bilirubin Negative, Urine Urobilinogen 0.2, Ur Leukocyte Esterase Negative, Urine WBC 3-5, Ur Squamous Epith Cells Occasional 12/19/20 06:31: Urine HCG, Qual Negative 12/19/20 06:43: WBC 6.1, RBC 4.94, Hgb 11.4 L, Hct 39.9, MCV 80.9 L, MCH 23.0 L, MCHC 28.4 L, RDW 15.2, Plt Count 238, MPV 7.7, Neut % (Auto) 38.0, Lymph % (Auto) 55.0 H, [place] % (Auto) 5.1, Eos % (Auto) 1.4, Baso % (Auto) 0.4, Neut # (Auto) 2.3, Lymph # (Auto) 3.3, [place] # (Auto) 0.3, Eos # (Auto) 0.1, Baso # (Auto) 0.0, ESR 14 12/19/20 06:43: Sodium 139, Potassium 3.9, Chloride 106, Carbon Dioxide 25, Anion Gap 11.9, BUN 17, Creatinine 0.80, Estimated Creat Clear 92, Estimated GFR 82, Est GFR ( Amer) 99, Glucose 96, Calcium 9.5, Total Bilirubin 0.3, AST 31, ALT 22, Alkaline Phosphatase 74, C-Reactive Protein 6.4 H, Total Protein 8.3 H, Albumin 4.7, Globulin 3.6 H, Albumin/Globulin Ratio 1.3, Amylase 66, Lipase 111, Procalcitonin 0.064 Result diagrams: 12/19/20 06:43 12/19/20 06:43 Orders (Tests/Meds): ED MEDICATIONS Generic Name Dose Route Start Last Admin Trade Name Freq PRN Reason Stop Dose Admin Sodium Chloride 8 ml 12/19/20 06:35 Sodium Chloride 0.9% 10ml Vial IV 01/18/21 06:34 NEEDED PRN dilute pepcid Discontinued Medications Generic Name Dose Route Start Last Admin Trade Name Freq PRN Reason Stop Dose Admin Famotidine 20 mg 12/19/20 06:35 12/19/20 06:55 Famotidine 20mg/2ml Vial IV 12/19/20 06:36 20 mg ONCE ONE Administration Sodium Chloride 1,000 mls @ 999 mls/hr 12/19/20 06:45 12/19/20 06:55 Sod Chlor 0.9% 1000ml Bag IV 12/19/20 07:45 999 mls/hr .Q1H1M RU Administration Iopamidol 75 ml 12/19/20 07:13 12/19/20 07:13 Iopamidol-370 (76%);100ml Bottle IV 12/19/20 07:14 75 ml ONCE ONE Administration Ketorolac Tro
[2020-12-19 07:41] LABS: Erythrocyte Sedimentation Rate 14 mm/hr (0-20)
--- NOTE | 2020-12-19 07:42 | US_ITS ---
PROCEDURE: US GALLBLADDER CLINICAL INDICATION: abd pain Abdominal pain and bloating COMPARISON: CT CT ABDOMEN PELVIS W CON from 12/19/2020 FINDINGS: Pancreas: Unremarkable/Not well seen Liver: Unremarkable. There is appropriate direction of blood flow within a non dilated portal vein. Right kidney: Unremarkable appearing. No hydronephrosis. Gallbladder: No gallstones apparent. Gallbladder does appear contracted. There may be some gallbladder sludge present. This is somewhat difficult to evaluate due to the patient's body habitus and contracted state of the gallbladder. No pericholecystic fluid, biliary dilatation, or gallbladder wall thickening. IMPRESSION: Contracted gallbladder with possible sludge. No shadowing stones Dictated by: Williams Amador MD 12/19/2020 09:37 Williams Amaodr MD in [place] 12/19/2020 09:37
--- NOTE | 2020-12-19 07:43 | PC.NURSE ---
Radiology notified of order for RUQ ultrasound.
--- NOTE | 2020-12-19 07:57 | PC.NURSE ---
Patient to ultrasound at this time.
--- NOTE | 2020-12-19 08:23 | PC.NURSE ---
Patient back from ultrasound.
--- NOTE | 2020-12-19 08:59 | PC.NURSE ---
pt reports she needs to leave at this time because her mom is outside waiting on her, states she is feeling better but states she will come back if she begins feeling bad again. Notified ER MD Dow of pt leaving
[2020-12-19 09:02] VITALS: BP 146/91; PULSE 70; RESP 18; TEMP 36.7; O2SAT 94
[2020-12-19 09:19] LABS: Lymphocytes % 57 % (10-50); Monocytes % 3 % (2-9); Neutrophils % 40 % (42-76); Platelet Estimate Normal; RBC Morphology Normal; Total Cells Counted 100
== END 2020-12-19 09:02 | disposition home or self-care (01) ==
PROVIDERS: Emergency Provider Emergency Medicine; PCP Nurse Practitioner Family
DX: R10.11 Right upper quadrant pain (principal); I10 Essential (primary) hypertension; E78.5 Hyperlipidemia, unspecified; E66.01 Morbid (severe) obesity due to excess calories; Z68.42 Body mass index [BMI] 45.0-49.9, adult; F17.210 Nicotine dependence, cigarettes, uncomplicated; Z79.899 Other long term (current) drug therapy
CPT/HCPCS: 74177; 76705; 80053; 81001; 81025; 82150; 83690; 84145; 85007; 85025; 85651; 86140; 96365; 96375; 99283; J2405; Q9967

== ENCOUNTER → 2021-01-30 07:49 | Outpatient (CLI) | payer BC, SELFPAY ==
[2021-01-30 08:11] LABS: Basophils % 0.2 % (0.1-2.0); Eosinophils # 0.1 K/mm3 (0.0-0.4); Eosinophils % 0.9 % (0.1-12.0); Hematocrit 35.4 % (37.0-47.0); Hemoglobin 10.6 g/dL (12.2-16.2); Lymphocytes # 3.2 K/mm3 (0.7-4.5); Lymphocytes % 56.3 % (10-50); Mean Corpuscular HGB Conc 29.9 g/dL (31.8-35.4); Mean Corpuscular Hemoglobin 23.4 pg (27.0-31.2); Mean Corpuscular Volume 78.3 fl (81-99); Mean Platelet Volume 7.6 fl (7.4-10.4); Monocytes # 0.3 K/mm3 (0.1-1.0); Monocytes % 4.5 % (1.7-9.3); Neutrophils # 2.2 K/mm3 (1.8-7.8); Neutrophils % 38.1 % (37.0-80.0); Platelet Count 225 K/mm3 (142-424); Red Blood Count 4.52 M/mm3 (4.20-5.40); Red Cell Distribution Width 15.1 % (11.5-17.5); White Blood Count 5.6 K/mm3 (4.8-10.8)
[2021-01-30 08:15] LABS: MANUAL DIFFERENTIAL MANUAL DIFFERENTIAL (MANUAL DIFF)
[2021-01-30 08:22] LABS: Amphetamine/Metha Screen,Urine Negative ng/ml (<1000); Barbiturates Screen,Urine Negative ng/ml (<200)
[2021-01-30 08:23] LABS: Benzodiazepines Screen,Urine Negative ng/ml (<200); Cannabinoid Screen,Urine Negative ng/ml (<50); Hemoglobin A1C 5.3 % (4.0-6.0)
[2021-01-30 08:24] LABS: Cocaine Screen,Urine Negative ng/ml (<300)
[2021-01-30 08:25] LABS: Methadone Screen,Urine Negative ng/ml (<300); Opiate Screen,Urine Negative ng/ml (<300)
[2021-01-30 08:26] LABS: Phencyclidine Screen,Urine Negative ng/ml (<25)
[2021-01-30 08:32] LABS: Chloride 103 mmol/L (98-107); Potassium 3.9 mmoL/L (3.5-5.1); Sodium 136 mmol/L (136-145)
[2021-01-30 08:34] LABS: Blood Urea Nitrogen 11 mg/dl (7-17); Estimated Glomerular Filt Rate 95 ml/min (>60); GFR (African American) 115 ML/MIN (>60)
[2021-01-30 08:35] LABS: Albumin Level 4.4 g/dl (3.5-5.0); Albumin/Globulin Ratio 1.5 (1.1-1.8); Globulin 2.9 g/dL (1.3-3.2); HDL Cholesterol 35 mg/dl (40-60); Total Protein,Serum 7.3 g/dl (6.3-8.2)
[2021-01-30 08:42] LABS: Alanine Aminotransferase 15 U/L (12-78); Alkaline Phosphatase 70 U/L (38-126); Anion Gap 10.9 mEq/L (5-15); Aspartate Amino Transferase 20 U/L (14-36); Bilirubin,Total 0.6 mg/dl (0.2-1.3); Calcium 9.6 mg/dl (8.4-10.2); Carbon Dioxide 26 mmol/L (22.0-30.0); Chol/HDL Ratio 5.5 (1-3.5); Cholesterol 192 mg/dl (140-200); Glucose 88 mg/dl (74-100); Triglycerides 190 mg/dl (30-150); VLDL Cholesterol 38 mg/dL (0-40)
[2021-01-30 08:46] LABS: Direct LDL Cholesterol 121.63 mg/dL (100-129)
[2021-01-30 08:57] LABS: Eosinophils % 3 % (0-3); Hypochromasia 2+; Lymphocytes % 55 % (10-50); Monocytes % 6 % (2-9); Neutrophils % 36 % (42-76); Platelet Estimate Normal; Total Cells Counted 100
[2021-01-30 09:05] LABS: Thyroid Stimulating Hormone 1.59 uIU/mL (0.465-4.68)
[2021-01-30 09:54] LABS: 25-OH Vitamin D, Total 20.5 ng/mL (30-100)
== END ==
PROVIDERS: Visit Provider Nurse Practitioner Family
DX: I10 Essential (primary) hypertension (principal); Z68.42 Body mass index [BMI] 45.0-49.9, adult; E78.5 Hyperlipidemia, unspecified; R73.03 Prediabetes; E66.01 Morbid (severe) obesity due to excess calories; E55.9 Vitamin D deficiency, unspecified
CPT/HCPCS: 36415; 80053; 80061; 80305; 82306; 83036; 84436; 84443; 85007; 85025

== ENCOUNTER 2021-07-17 17:03 | Emergency (ER) | payer BC, SELFPAY ==
[2021-07-17 17:04] VITALS: BP 131/73; PULSE 89; RESP 16; TEMP 36.9; O2SAT 100; BMI 47.6
--- NOTE | 2021-07-17 17:08 | ECG_ITS ---
APPROVED REPORT Exam: Resting ECG HR:90 bpm ECG Measurements Heart Rate 90 AXES OK 126 P 50 QRSd 80 QRS 37 QT 366 T 19 QTc 447 Conclusion Normal sinus rhythm Normal ECG Electronically signed by : Horace Vitale MD 07/18/2021 17:48:56
--- NOTE | 2021-07-17 17:13 | HMH.EDGENADL ---
ED Disposition Clinical Impression: Atypical chest pain Disposition: Home, Self-Care Condition on Discharge: Good Instructions: DI for Atypical Chest Pain Additional Instructions: Additional instructions for CHEST PAIN: See your physician as soon as possible for further evaluation. Return immediately if worsening chest pain, vomiting, shortness of breath, fever, coughing of blood. Referrals: Jonathan Chen APRN [Primary Care Provider] - - Critical Care Critical Care Time: No Attestation: On , the high probability of a clinically significant, sudden or life threatening deterioration of the following system(s) required my full and direct attention, intervention and personal management. The time I documented below is in addition to time spent performing reported procedures but includes the following listed in this critical care notation. Medical Decision Making - Medical Records Medical records reviewed: Yes: I reviewed the patient's medical records. MR Comment: Prior echo results reviewed. See below. Reviewed cardiology office visits x2. The patient was seen here for chest pain. No stress test or heart cath at this facility. - Jakob Inquiry Pt receiving controlled substance: No Vital Signs: 07/17/21 17:04 07/17/21 17:48 07/17/21 18:01 Temperature 98.5 F Temperature Source Oral Pulse Rate 72 71 Pulse Rate [Right] 89 Respiratory Rate 16 16 24 Blood Pressure 140/60 117/60 Blood Pressure [Right Arm] 131/73 Blood Pressure Mean [Right Arm] 92 Blood Pressure Source Automatic Cuff Blood Pressure Source [Right Arm] Automatic Cuff Blood Pressure Position Sitting Blood Pressure Position [Right Arm] Sitting 02 Sat by Pulse Oximetry 100 99 99 Oxygen Delivery Method Room Air Room Air - Lab Data Lab Results 07/17/21 17:22: WBC 4.8, RBC 4.38, Hgb 10.6 L, Hct 36.3 L, MCV 82.9, MCH 24.3 L, MCHC 29.3 L, RDW 15.8, Plt Count 281, MPV 8.4, Neut % (Auto) 42.8, Lymph % (Auto) 50.2 H, [place] % (Auto) 5.6, Eos % (Auto) 1.0, Baso % (Auto) 0.4, Neut # (Auto) 2.0, Lymph # (Auto) 2.4, [place] # (Auto) 0.3, Eos # (Auto) 0.1, Baso # (Auto) 0.0, Total Counted 100, Neutrophils % (Manual) 35 L, Lymphocytes % (Manual) 51 H, Monocytes % (Manual) 10 H, Eosinophils % (Manual) 4 H, Platelet Estimate Normal, Hypochromasia 2+, Microcytosis 1+ 07/17/21 17:22: Sodium 138, Potassium 3.8, Chloride 106, Carbon Dioxide 26, Anion Gap 9.8, BUN 14, Creatinine 0.60, Estimated Creat Clear 127, Estimated GFR 114, Est GFR ( Amer) 138, Glucose 89, Calcium 9.0, Troponin I < 0.01 Result diagrams: 07/17/21 17:22 07/17/21 17:22 Orders (Tests/Meds): ORDERS Category Date Time Status Troponin I Q3H Lab 07/17/21 20:20 Received Troponin I Q3H Lab 07/17/21 23:30 Ordered Prior ECHO: Conclusion 1. Normal left ventricular size, preserved left ventricular systolic function, visually estimated ejection fraction 55% with no regional wall motion abnormality, diastolic parameters are within normal range. 2. Mild mitral and tricuspid regurgitation. 3. No significant pericardial effusion noted. Electronically signed by : Jose Juan Jimenez, 01/31/2020 19:58:41 - Radiology Data #1 Image(s): Chest Image Reviewed: Yes I reviewed the patient's radiology image, Yes I have reviewed radiologist's interpretation PROCEDURE INFORMATION: Exam: XR Chest Exam date and time: 07/17/2021 5:16 PM Age: 35 years old Clinical indication: Sternal or substernal pain; Patient HX: Chest pain started a few hours ago while at work. Smoker. No chest surgeries. TECHNIQUE: Imaging protocol: XR of the chest. Views: 2 views. COMPARISON: CR CXR CHEST(2 VIEWS-NOT PORTABLE) 07/22/2016 9:32 AM FINDINGS: Lungs: Unremarkable. No consolidation. Pleural spaces: Unremarkable. No pleural effusion. No pneumothorax. Heart/Mediastinum: Unremarkable. No cardiomegaly. Bones/joints: Unremarkable. IMPRESSION: No ac
--- NOTE | 2021-07-17 17:16 | XR_ITS ---
PROCEDURE INFORMATION: Exam: XR Chest Exam date and time: 07/17/2021 5:16 PM Age: 35 years old Clinical indication: Sternal or substernal pain; Patient HX: Chest pain started a few hours ago while at work. Smoker. No chest surgeries. TECHNIQUE: Imaging protocol: XR of the chest. Views: 2 views. COMPARISON: CR CXR CHEST(2 VIEWS-NOT PORTABLE) 07/22/2016 9:32 AM FINDINGS: Lungs: Unremarkable. No consolidation. Pleural spaces: Unremarkable. No pleural effusion. No pneumothorax. Heart/Mediastinum: Unremarkable. No cardiomegaly. Bones/joints: Unremarkable. IMPRESSION: No acute findings.
[2021-07-17 17:46] LABS: Basophils % 0.4 % (0.1-2.0); Eosinophils # 0.1 K/mm3 (0.0-0.4); Hematocrit 36.3 % (37.0-47.0); Hemoglobin 10.6 g/dL (12.2-16.2); Lymphocytes # 2.4 K/mm3 (0.7-4.5); Lymphocytes % 50.2 % (10-50); Mean Corpuscular HGB Conc 29.3 g/dL (31.8-35.4); Mean Corpuscular Hemoglobin 24.3 pg (27.0-31.2); Mean Corpuscular Volume 82.9 fl (81-99); Mean Platelet Volume 8.4 fl (7.4-10.4); Monocytes # 0.3 K/mm3 (0.1-1.0); Monocytes % 5.6 % (1.7-9.3); Neutrophils % 42.8 % (37.0-80.0); Platelet Count 281 K/mm3 (142-424); Red Blood Count 4.38 M/mm3 (4.20-5.40); Red Cell Distribution Width 15.8 % (11.5-17.5); White Blood Count 4.8 K/mm3 (4.8-10.8)
[2021-07-17 17:48] VITALS: BP 140/60; PULSE 72; RESP 16; O2SAT 99
[2021-07-17 17:50] LABS: MANUAL DIFFERENTIAL MANUAL DIFFERENTIAL (MANUAL DIFF)
[2021-07-17 17:51] LABS: Anion Gap 9.8 mEq/L (5-15); Blood Urea Nitrogen 14 mg/dl (7-17); Carbon Dioxide 26 mmol/L (22.0-30.0); Chloride 106 mmol/L (98-107); Creatinine Clearance Estimated 127 mL/min (50-200); Estimated Glomerular Filt Rate 114 ml/min (>60); GFR (African American) 138 ML/MIN (>60); Glucose 89 mg/dl (74-100); Potassium 3.8 mmoL/L (3.5-5.1); Sodium 138 mmol/L (136-145)
[2021-07-17 18:01] VITALS: BP 117/60; PULSE 71; RESP 24; O2SAT 99
[2021-07-17 18:04] LABS: Troponin I < 0.01 ng/ml (0.00-0.034)
[2021-07-17 18:24] LABS: Eosinophils % 4 % (0-3); Lymphocytes % 51 % (10-50); Monocytes % 10 % (2-9); Neutrophils % 35 % (42-76); Platelet Estimate Normal; Total Cells Counted 100
[2021-07-17 18:25] LABS: Hypochromasia 2+; Microcytosis 1+
--- NOTE | 2021-07-17 19:24 | PC.NURSE ---
Pt in bed asleep
[2021-07-17 20:53] LABS: Troponin I < 0.01 ng/ml (0.00-0.034)
[2021-07-17 21:14] VITALS: BP 120/73; PULSE 76; RESP 16; TEMP 36.9; O2SAT 99
== END 2021-07-17 21:19 | disposition home or self-care (01) ==
PROVIDERS: Emergency Provider Emergency Medicine; PCP Nurse Practitioner Family
DX: R07.89 Other chest pain (principal); I10 Essential (primary) hypertension; E78.5 Hyperlipidemia, unspecified; F17.210 Nicotine dependence, cigarettes, uncomplicated
CPT/HCPCS: 71046; 80048; 84484; 85007; 85025; 93005; 96365; 99283

== ENCOUNTER → 2021-12-09 16:36 | Outpatient (CLI) | payer BC, SELFPAY ==
[2021-12-11 22:31] LABS: Neisseria gonorrhoeae, NAA Negative (Negative)
== END ==
PROVIDERS: Visit Provider Obstetrics & Gynecology
DX: Z72.51 High risk heterosexual behavior (principal)
CPT/HCPCS: 87491; 87591

== ENCOUNTER → 2021-12-27 13:47 | Outpatient (CLI) | payer BC, SELFPAY ==
[2021-12-30 06:01] LABS: Neisseria gonorrhoeae, NAA Negative (Negative)
== END ==
PROVIDERS: Visit Provider Obstetrics & Gynecology
DX: Z20.2 Contact with and (suspected) exposure to infections with a predominantly sexual mode of transmission (principal)
CPT/HCPCS: 87210; 87491; 87591

== ENCOUNTER 2022-05-18 15:10 | Emergency (ER) | payer BC, SELFPAY ==
[2022-05-18 15:11] VITALS: BP 129/83; PULSE 88; RESP 18; TEMP 37.6; O2SAT 98; BMI 46.6
[2022-05-18 15:45] VITALS: BP 129/83; PULSE 88; RESP 18; TEMP 37.6; O2SAT 98; BMI 46.7
--- NOTE | 2022-05-18 16:00 | HMH.EDUTC ---
[facility] [place] Disposition Clinical Impression: Sinusitis Qualifiers: Sinusitis location: unspecified location Chronicity: unspecified Qualified Code(s): J32.9 - Chronic sinusitis, unspecified Disposition: Home, Self-Care Condition on Discharge: Good Instructions: Sinusitis, DI for Sinusitis, DI for COVID-19 (Suspected or Confirmed ) Additional Instructions: *Monitor Temp, Over the counter Motrin or Tylenol as directed/as needed Tylenol every 4 hours and Motrin every 6 hours (as long as your family doctor has told you that you can take it) for fever or pain. and straight to ER if unable to lower temp less than 101.0 after medication given *Warm salt water gargles may help to soothe the throat *Throat Lozenges *Warm fluids like tea with honey may help to soothe the throat *Sleep elevated *Humidifier/Vaporizer Take medication as prescribed Return if needed Follow up IMMEDIATELY for new or worsening symptoms or no Noticeable improvement over the next 48-72 hours. 911 for difficulty breathing or swallowing You were tested for today for COVID19 your test result should be back in the next 24-48 hours, you may Check your results on the [facility] My Health portal Make sure to take your Vitamins Vit. C Vit D and Zinc if you can take them Prescriptions: Amoxicillin/Potassium Clav [Amox-Clav 875-125 mg Tablet] 1 tab PO BID #14 tab Transmission Status: Pending to [id number] predniSONE [Prednisone 20mg Tab] 20 mg PO BID #10 tab Transmission Status: Pending to [id number] Referrals: Torsten Dow MD [Primary Care Provider] - As needed Forms: Work/School Release Time of Disposition: 16:10 Medical Decision Making - Jakob Inquiry Pt receiving controlled substance: No Jakob was queried for this patient: No Vital Signs: 05/18/22 15:11 05/18/22 15:45 Temperature 99.7 F H 99.7 F H Temperature Source Oral Oral Pulse Rate [Radial] 88 88 Respiratory Rate 18 18 Blood Pressure [Right Arm] 129/83 129/83 Blood Pressure Mean [Right Arm] 98 98 Blood Pressure Source [Right Arm] Automatic Cuff Automatic Cuff Blood Pressure Position [Right Arm] Sitting Sitting 02 Sat by Pulse Oximetry 98 98 Oxygen Delivery Method Room Air Room Air Orders (Tests/Meds): ORDERS Category Date Time Status Covid-19 Nasal PCR ([facility]) Routine Lab 05/18/22 15:48 Received Medical Decision Narrative: Patient reports LMP 2 week ago [facility] [place] HPI - General Stated complaint: chills,body aches,LEBRON Time Seen by Provider: 05/18/22 16:00 Mode of Arrival: Ambulatory Source of Information: Patient Limitations: No Limitations Description of Symptoms (Recalled from Triage Doc. by RN): PATIENT C/O BODY ACHES, HEADACHE, BILATERAL EAR PAIN THAT BEGAN YESTERDAY HEENT Symptoms (Recalled from RN notes): Yes Resp Symptoms (Recalled from RN notes): No Skin Symptoms (Recalled from RN notes): No MS Symptoms (Recalled from RN notes): No Functional Status (Recalled from RN notes): WNL - History of Present Illness Provider Complaint: Patient states that she has been having sinus pain and pressure on and off for about a week and got worse yesterday States that she is having pain and pressure in both ears, headache, chills and bodyaches - Related Data Home Medications Medication Instructions Recorded Confirmed Ergocalciferol (Vitamin D2) 50,000 unit PO QWEEK 07/17/21 04/11/22 [Drisdol] Previous Rx's Medication Instructions Recorded propranolol 40 mg tablet 40 mg PO BID #180 tab 11/05/21 levofloxacin 500 mg tablet 500 mg PO DAILY #7 tab 04/18/22 Amoxicillin/Potassium Clav 1 tab PO BID #14 tab 05/18/22 [Amox-Clav 875-125 mg Tablet] predniSONE [Prednisone 20mg 20 mg PO BID #10 tab 05/18/22 Tab] Allergies Allergy/AdvReac Type Severity Reaction Status Date / Time No Known Allergies Allergy Verified 04/11/22 08:45 - Worker's Comp Is this a Worker's Comp case?: No [facility] History - Hepatitis A Screen Attestati
[2022-05-18 16:10] VITALS: BP 129/83; PULSE 88; RESP 18; TEMP 37.6; O2SAT 98
== END 2022-05-18 16:14 | disposition home or self-care (01) ==
PROVIDERS: Emergency Provider Nurse Practitioner; PCP Emergency Medicine
DX: J32.9 Chronic sinusitis, unspecified (principal); F17.210 Nicotine dependence, cigarettes, uncomplicated; Z20.822 Contact with and (suspected) exposure to COVID-19
CPT/HCPCS: 99212; C9803; G0463; U0003; U0005

== ENCOUNTER 2023-01-05 05:25 | Emergency (ER) | payer BC, SELFPAY ==
[2023-01-05 05:27] VITALS: BP 137/77; PULSE 86; RESP 16; TEMP 36.6; O2SAT 97; BMI 47.6
[2023-01-05 05:35] VITALS: BMI 47.6
--- NOTE | 2023-01-05 05:36 | XR_ITS ---
PROCEDURE INFORMATION: Exam: XR Left Wrist Exam date and time: 01/05/2023 5:34 AM Age: 37 years old Clinical indication: Injury or trauma; Fall; Additional info: Accident TECHNIQUE: Imaging protocol: Radiologic exam of the left wrist. Views: 3 or more views. COMPARISON: CR Hand L 01/05/2023 5:33 AM FINDINGS: Bones/joints: Normal. Soft tissues: Normal. IMPRESSION: No acute findings.
--- NOTE | 2023-01-05 05:36 | XR_ITS ---
PROCEDURE INFORMATION: Exam: XR Left Hand Exam date and time: 01/05/2023 5:33 AM Age: 37 years old Clinical indication: Injury or trauma; Fall; Additional info: Accident TECHNIQUE: Imaging protocol: Radiologic exam of the left hand. Views: 3 or more views. COMPARISON: No relevant prior studies available. FINDINGS: Bones/joints: Normal. Soft tissues: Normal. IMPRESSION: No acute findings.
--- NOTE | 2023-01-05 06:50 | PC.NURSE ---
Rounded on pt. Pt updated on POC. No needs or complaints voiced at this time.
--- NOTE | 2023-01-05 07:05 | HMH.EDUPEXT ---
Discharge Plan Disposition Patient Disposition: Home, Self-Care Prescriptions Prescriptions: No Action propranolol 40 mg tablet 40 mg PO BID Qty: 180 0RF ergocalciferol (vitamin D2) 1,250 MCG capsule 50,000 unit PO QWEEK Referrals Follow up/Referrals: Colton Bee APRN [Primary Care Provider] - See instructions Clinical Impressions Clinical Impression: Sprain and strain of wrist, Contusion of hand Instructions Patient Instructions: DI for Wrist Strain Discharge ED Provider: Paloma (ED)Torsten Upper Extremity HPI General Chief Complaint: Extremity Injury, Upper Stated Complaint: AO 01/05/23 0500 injury left hand injury Time Seen by Provider: 01/05/23 07:05 Mode of Arrival: Ambulatory Source of Information: Patient and Medical Record Limitations: No Limitations Description of Symptoms (Recalled from ER Triage Doc. by RN): Pt arrives to ED for evaluation of left hand pain and swelling after she slammed it into her shower door this morning. History of Present Illness HPI narrative: acute slip injury and injured lt wrist and hand this am complaint: injury to: left, wrist and hand Onset (ago): hour(s) Other Extremity Injury: Left: hand and wrist Other injuries: none Handedness: right Place: home Severity: moderate Context: direct blow Associated symptoms: denies other symptoms Related Data Home Medications Medication Instructions Recorded Confirmed ergocalciferol (vitamin D2) 1,250 50,000 unit PO QWEEK Supplement 07/17/21 09/19/22 mcg (50,000 unit) capsule Previous Rx's Medication Instructions Recorded propranolol 40 mg tablet 40 mg PO BID beta thang #180 tabs 09/19/22 Allergies Allergy/AdvReac Type Severity Reaction Status Date / Time No Known Allergies Allergy Verified 09/19/22 13:07 [facility] Disclaimer: The information contained in this section may have been updated after the patient was seen, as this information can be updated by other users. Medical History (Updated 01/05/23 @ 07:10 by Torsten Dow (ED)MD) HTN (hypertension), benign Hyperlipidemia Obesity Obesity (BMI 30-39.9) Pre-diabetes Sleep apnea in adult Social History Smoking Status: Current every day smoker tobacco type: cigarettes packs per day: 1 and e-cigarettes alcohol intake: current substance use type: denies use current occupational status: employed Travel in the last 8 weeks: None household members: family housing: house ROS Obtained: Yes All systems reviewed & no additional complaints except as documented Physical Exam General General appearance: alert Head Head exam: normocephalic Eye Eye exam: Present PERRL and EOMI ENT ENT exam: Present mucous membranes moist Neck Neck exam: Present trachea midline Respiratory Respiratory exam: Absent respiratory distress Cardiovascular Cardiovascular exam: Present regular rate Abdominal Exam Abdominal exam: Present soft Expanded Upper Extremity Exam Left: Forearm/Wrist exam: Present tenderness; Absent full ROM Hand exam: Present tenderness and swelling; Absent full ROM Neuromotor exam: Normal wrist extension Vascular exam: Normal radial pulse Neurological Exam Neurological exam: Present alert, oriented X3 and CN II-XII intact; Absent motor sensory deficit Psychiatric Psychiatric exam: Present normal affect Skin Skin exam: Absent rash Medical Decision Making Medical Records Medical records reviewed: Yes I reviewed the patient's medical records. Jakob Inquiry Pt receiving controlled substance: No Vital Signs: 01/05/23 05:27 Temperature 98 F Temperature Source Oral Pulse Rate [Right] 86 Respiratory Rate 16 Blood Pressure [Right Arm] 137/77 Blood Pressure Mean [Right Arm] 97 02 Sat by Pulse Oximetry 97 Oxygen Delivery Method Room Air Lab Data Lab results reviewed: Yes I reviewed the patient's lab results. Orders (Tests/Meds): ORDERS Category Date Time Stat
--- NOTE | 2023-01-05 07:26 | PC.NURSE ---
Splint applied to patient's left hand and wrist, fit appropriate, +PMS distal
[2023-01-05 07:31] VITALS: BP 130/85; PULSE 75; RESP 14; TEMP 37; O2SAT 99
== END 2023-01-05 07:33 | disposition home or self-care (01) ==
PROVIDERS: Emergency Provider Emergency Medicine; PCP Nurse Practitioner Family
DX: S63.502A Unspecified sprain of left wrist, initial encounter (principal); S66.912A Strain of unspecified muscle, fascia and tendon at wrist and hand level, left hand, initial encounter; S60.222A Contusion of left hand, initial encounter; W22.8XXA Striking against or struck by other objects, initial encounter
CPT/HCPCS: 29125; 73110; 73130; 99283

== ENCOUNTER → 2023-05-21 23:43 | Outpatient (CLI) | payer BC, SELFPAY ==
[2023-05-21 18:57] LABS: Basophils % 0.3 % (0.1-2.0); Eosinophils # 0.1 K/mm3 (0.0-0.4); Eosinophils % 1.9 % (0.1-12.0); Hematocrit 36.6 % (37.0-47.0); Hemoglobin 11.2 g/dL (12.2-16.2); Lymphocytes # 2.5 K/mm3 (0.7-4.5); Lymphocytes % 43.1 % (10-50); Mean Corpuscular HGB Conc 30.5 g/dL (31.8-35.4); Mean Corpuscular Hemoglobin 23.3 pg (27.0-31.2); Mean Corpuscular Volume 76.4 fl (81-99); Mean Platelet Volume 9.9 fl (7.4-10.4); Monocytes # 0.5 K/mm3 (0.1-1.0); Monocytes % 8.8 % (1.7-9.3); Neutrophils # 2.7 K/mm3 (1.8-7.8); Neutrophils % 45.9 % (37.0-80.0); Platelet Count 308 K/mm3 (142-424); Red Cell Distribution Width 15.8 % (11.5-17.5); White Blood Count 5.8 K/mm3 (4.8-10.8)
[2023-05-21 19:04] LABS: Alanine Aminotransferase 27 U/L (12-78); Albumin Level 4.2 g/dl (3.5-5.0); Albumin/Globulin Ratio 1.3 (1.1-1.8); Alkaline Phosphatase 63 U/L (38-126); Anion Gap 10.6 mEq/L (5-15); Aspartate Amino Transferase 25 U/L (14-36); Bilirubin,Total 0.4 mg/dl (0.2-1.3); Blood Urea Nitrogen 11 mg/dl (7-17); Calcium 9.8 mg/dl (8.4-10.2); Carbon Dioxide 27 mmol/L (22.0-30.0); Chloride 108 mmol/L (98-107); Chol/HDL Ratio 7.8 (1-3.5); Cholesterol 249 mg/dl (140-200); Estimated Glomerular Filt Rate 81 ml/min (>60); GFR (African American) 98 ML/MIN (>60); Globulin 3.2 g/dL (1.3-3.2); Glucose 94 mg/dl (74-100); HDL Cholesterol 32 mg/dl (40-60); Potassium 4.6 mmoL/L (3.5-5.1); Sodium 141 mmol/L (136-145); Total Protein,Serum 7.4 g/dl (6.3-8.2); Triglycerides 217 mg/dl (30-150); VLDL Cholesterol 43 mg/dL (0-40)
[2023-05-21 19:15] LABS: Direct LDL Cholesterol 158.93 mg/dL (100-129)
[2023-05-21 19:33] LABS: Thyroid Stimulating Hormone 0.59 uIU/mL (0.465-4.68)
[2023-05-21 20:17] LABS: Hemoglobin A1C 5.2 % (4.0-6.0)
[2023-05-21 21:06] LABS: 25-OH Vitamin D, Total 19.6 ng/mL (30-100)
== END ==
LOC: LAB.DROPOF 23:43
PROVIDERS: PCP Nurse Practitioner Family; Visit Provider Student in an Organized Health Care Education/Training Program
DX: R73.03 Prediabetes (principal); E55.9 Vitamin D deficiency, unspecified; Z79.899 Other long term (current) drug therapy
CPT/HCPCS: 80053; 80061; 82306; 83036; 84443; 85025

== ENCOUNTER → 2023-06-24 08:33 | Outpatient (CLI) | payer BC, SELFPAY ==
[2023-06-05 18:43] LABS: Basophils % 0.3 % (0.1-2.0); Eosinophils # 0.1 K/mm3 (0.0-0.4); Eosinophils % 1.9 % (0.1-12.0); Hematocrit 36.4 % (37.0-47.0); Lymphocytes % 48.8 % (10-50); Mean Corpuscular HGB Conc 30.1 g/dL (31.8-35.4); Mean Corpuscular Hemoglobin 23.8 pg (27.0-31.2); Mean Corpuscular Volume 79.1 fl (81-99); Mean Platelet Volume 9.5 fl (7.4-10.4); Monocytes # 0.3 K/mm3 (0.1-1.0); Monocytes % 5.1 % (1.7-9.3); Neutrophils # 2.7 K/mm3 (1.8-7.8); Platelet Count 304 K/mm3 (142-424); Red Blood Count 4.61 M/mm3 (4.20-5.40); Red Cell Distribution Width 15.9 % (11.5-17.5); White Blood Count 6.1 K/mm3 (4.8-10.8)
[2023-06-05 19:48] LABS: Ferritin 168 ng/ml (6.24-137)
[2023-06-05 20:01] LABS: Vitamin B12 735 pg/mL (239-931)
[2023-06-05 20:26] LABS: Folate 6.12 ng/mL
[2023-06-05 20:50] LABS: Iron 77 ug/dL (37-170)
[2023-06-05 21:23] LABS: Total Iron Binding Capacity 367 ug/dL (265-497)
== END ==
LOC: LAB.DROPOF 08:33
PROVIDERS: PCP Student in an Organized Health Care Education/Training Program; Visit Provider Student in an Organized Health Care Education/Training Program
DX: D64.9 Anemia, unspecified (principal); R79.89 Other specified abnormal findings of blood chemistry
CPT/HCPCS: 82607; 82728; 82746; 83540; 83550; 85025

== ENCOUNTER 2024-02-05 15:03 | Outpatient (CLI) | payer BC, SELFPAY ==
--- NOTE | 2024-02-05 15:16 | XR_ITS ---
FINAL REPORT CLINICAL HISTORY: chronic right shoulder pain COMPARISON: None FINDINGS: RIGHT SHOULDER Three views demonstrate no acute fracture or dislocation. The visualized joint spaces are normally aligned. The soft tissues are unremarkable. IMPRESSION: No acute process. Reviewed, Interpreted and Dictated by Kilo Nunn MD Transcribed by Lucila Quiñonez Authenticated and [facility]
[2024-02-05 15:40] LABS: Basophils % 0.5 % (0.1-2.0); Eosinophils # 0.2 K/mm3 (0.0-0.4); Eosinophils % 2.7 % (0.1-12.0); Hematocrit 38.6 % (37.0-47.0); Hemoglobin 11.9 g/dL (12.2-16.2); Lymphocytes # 2.8 K/mm3 (0.7-4.5); Lymphocytes % 44.4 % (10-50); Mean Corpuscular HGB Conc 30.8 g/dL (31.8-35.4); Mean Corpuscular Volume 78.1 fl (81-99); Mean Platelet Volume 7.8 fl (7.4-10.4); Monocytes # 0.4 K/mm3 (0.1-1.0); Monocytes % 5.7 % (1.7-9.3); Neutrophils # 2.9 K/mm3 (1.8-7.8); Neutrophils % 46.8 % (37.0-80.0); Platelet Count 280 K/mm3 (142-424); Red Blood Count 4.94 M/mm3 (4.20-5.40); Red Cell Distribution Width 15.7 % (11.5-17.5); Reticulocyte % (Auto) 1.9 % (0.9-3.2); White Blood Count 6.2 K/mm3 (4.8-10.8)
[2024-02-05 15:48] LABS: Alanine Aminotransferase 44 U/L (12-78); Albumin Level 4.4 g/dl (3.5-5.0); Albumin/Globulin Ratio 1.5 (1.1-1.8); Alkaline Phosphatase 66 U/L (38-126); Anion Gap 11.9 mEq/L (5-15); Aspartate Amino Transferase 34 U/L (14-36); Bilirubin,Total 0.4 mg/dl (0.2-1.3); Blood Urea Nitrogen 10 mg/dl (7-17); Calcium 10.3 mg/dl (8.4-10.2); Carbon Dioxide 26 mmol/L (22.0-30.0); Chloride 107 mmol/L (98-107); Chol/HDL Ratio 7.6 (1-3.5); Cholesterol 281 mg/dl (140-200); Estimated Glomerular Filt Rate 80 ml/min (>60); GFR (African American) 97 ML/MIN (>60); Glucose 94 mg/dl (74-100); HDL Cholesterol 37 mg/dl (40-60); Potassium 3.9 mmoL/L (3.5-5.1); Sodium 141 mmol/L (136-145); Total Protein,Serum 7.4 g/dl (6.3-8.2); Triglycerides 275 mg/dl (30-150); VLDL Cholesterol 55 mg/dL (0-40)
[2024-02-05 16:00] LABS: Direct LDL Cholesterol 183.39 mg/dL (100-129)
[2024-02-05 16:08] LABS: 25-OH Vitamin D, Total 24.6 ng/mL (30-100)
[2024-02-05 16:21] LABS: Thyroid Stimulating Hormone 0.88 uIU/mL (0.465-4.68)
[2024-02-05 17:05] LABS: Iron 106 ug/dL (37-170)
[2024-02-05 17:15] LABS: Total Iron Binding Capacity 328 ug/dL (265-497)
[2024-02-05 17:38] LABS: Vitamin B12 756 pg/mL (239-931)
[2024-02-05 17:42] LABS: Ferritin 95.6 ng/ml (6.24-137)
[2024-02-07 15:08] LABS: Peripheral Smear Review Scanned Result
== END 2024-02-05 23:59 | disposition home or self-care (01) ==
LOC: LAB 15:04
PROVIDERS: PCP Student in an Organized Health Care Education/Training Program; Visit Provider Student in an Organized Health Care Education/Training Program
DX: I10 Essential (primary) hypertension (principal); D64.9 Anemia, unspecified; E55.9 Vitamin D deficiency, unspecified; Z13.29 Encounter for screening for other suspected endocrine disorder; M25.511 Pain in right shoulder; G89.29 Other chronic pain; Z68.42 Body mass index [BMI] 45.0-49.9, adult; F17.210 Nicotine dependence, cigarettes, uncomplicated; F17.290 Nicotine dependence, other tobacco product, uncomplicated
CPT/HCPCS: 36415; 73030; 80053; 80061; 82306; 82607; 82728; 82746; 83540; 83550; 84443; 85025; 85044

== ENCOUNTER 2024-02-12 13:42 | Outpatient (CLI) | payer BC, SELFPAY | END 2024-02-12 23:59 | disposition home or self-care (01) | LOC: LAB 13:42 | PROVIDERS: PCP Student in an Organized Health Care Education/Training Program; Visit Provider Internal Medicine Medical Oncology | DX: D50.8 Other iron deficiency anemias (principal) | CPT/HCPCS: 36415 ==

== ENCOUNTER 2024-03-11 08:46 | Emergency (ER) | payer BC, SELFPAY ==
[2024-03-11] VITALS (7 sets, daily range): BP systolic 116–139; BP diastolic 69–89; PULSE 64–81; RESP 16–18; TEMP 36.7–36.9; O2SAT 96–100; BMI 47.6
--- NOTE | 2024-03-11 08:51 | PC.NURSE ---
DR NEIL AT BEDSIDE
--- NOTE | 2024-03-11 09:03 | CT_ITS ---
FINAL REPORT TECHNIQUE: Thin-section axial CT images were performed through the orbits after contrast administration. Coronal and sagittal reformatted images were submitted. This study was performed with techniques to keep radiation doses as low as reasonably achievable, (ALARA). Individualized dose reduction techniques using automated exposure control or adjustment of mA and/or kV according to the patient's size were employed. CLINICAL HISTORY: left eye pain w EOM, c/f orbital cellulitis FINDINGS: CT ORBITS WITH CONTRAST No orbital masses identified. There are no inflammatory changes within or surrounding orbits. The extraocular muscles are normal. The superior ophthalmic veins are patent. A mucous retention cyst is seen within the left sphenoid sinus measuring 12 mm. Otherwise, the paranasal sinuses are clear. 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 IMPRESSION: No evidence of orbital mass or inflammatory changes. Reviewed, Interpreted and Dictated by Itzel Moreno MD Transcribed by Rhiannon De La Rosa Authenticated and [facility]
--- NOTE | 2024-03-11 09:05 | ED_ITS ---
Discharge Plan Disposition Patient Disposition: Home, Self-Care Condition: Good Prescriptions Prescriptions: New erythromycin 5 mg/gram (0.5 %) ointment 1.25 cm ophthalmic (eye) QID 7 Days Qty: 3.5 0RF No Action venlafaxine 37.5 mg capsule,extended release 24hr 37.5 mg PO DAILY hydroxyzine pamoate 25 mg capsule 25 mg PO HS metformin 500 mg tablet 500 mg PO DAILY hydrochlorothiazide 12.5 mg tablet 12.5 mg PO DAILY Qty: 60 4RF naproxen 500 mg tablet 500 mg PO BID Qty: 30 0RF atorvastatin 10 mg tablet 10 mg PO DAILY Qty: 90 3RF ergocalciferol (vitamin D2) 1,250 mcg (50,000 unit) capsule 50,000 unit PO WEEKLY Patient Comments: TAKE 1 CAPSULE BY MOUTH EVERY THURSDAY Referrals Follow up/Referrals: Livia Schafer PA [Primary Care Provider] - See instructions Activity Restrictions/Add. Instructions Additional Instructions/Restrictions: You were seen in the ED today due to eye pain. We have prescribed antibiotic ointment. Please use as directed, 4 times daily for the next 7 days. You may follow-up with ophthalmology. Call [phone] to schedule an appointment. Return to the ED if symptoms worsen or if new concerning symptoms arise. Thank you. Clinical Impressions Clinical Impression: Conjunctivitis Qualifiers: Conjunctivitis type: acute Acute conjunctivitis type: unspecified Laterality: l eft Qualified Code(s): H10.32 - Unspecified acute conjunctivitis, left eye Discharge ED Provider: Omer Hutchinson Adult HPI General Chief complaint: Eye Problems Stated complaint: object in left eye Time Seen by Provider: 03/11/24 08:50 Mode of Arrival: Ambulatory Source of Information: Patient Limitations: No Limitations Description of Symptoms (Recalled from ER Triage Doc. by RN): pt presents to ED c/o left eye pain and redness. pt states her eye started hurting last evening. denies any known injury. denies wearing contacts, states she wears glasses. no drainage noted. History of Present Illness HPI narrative: Patient is a 38-year-old female with history of HTN, HLD who presents due to eye pain. Patient states last night she began having pain and redness of the left eye. Denies any preceding trauma. She states it feels like there is something stuck in the eye. States she is having blurry vision in the left eye. Denies any contact lens use. Denies any fevers. Related Data Home Medications Medication Instructions Recorded Confirmed hydroxyzine pamoate 25 mg capsule 25 mg PO HS 12/24/23 03/02/24 metformin 500 mg tablet 500 mg PO DAILY Weight loss 12/24/23 03/02/24 venlafaxine 37.5 mg 37.5 mg PO DAILY 12/24/23 03/02/24 capsule,extended release 24 hr ergocalciferol (vitamin D2) 1,250 50,000 unit PO WEEKLY 01/01/24 03/02/24 mcg (50,000 unit) capsule Previous Rx's Medication Instructions Recorded hydrochlorothiazide 12.5 mg tablet 12.5 mg PO DAILY #60 tabs 02/05/24 naproxen 500 mg tablet 500 mg PO BID #30 tabs 02/05/24 atorvastatin 10 mg tablet 10 mg PO DAILY #90 tabs 02/08/24 erythromycin 5 mg/gram (0.5 %) eye 1.25 cm ophthalmic (eye) QID 7 03/11/24 ointment days #3.5 grams Allergies Allergy/AdvReac Type Severity Reaction Status Date / Time No Known Allergies Allergy Verified 03/02/24 13:53 [facility] Disclaimer: The information contained in this section may have been updated after the patient was seen, as this information can be updated by other users. Medical History Depression PCO (posterior capsular opacification), bilateral Family history of breast cancer PGM, post-menopausal Contusion of hand Recurrent vaginitis High risk HPV infection Body mass index (BMI) greater than 40 Vitamin D deficiency Pre-diabetes Obesity HTN (hypertension), benign Sleep apnea in adult Obesity (BMI 30-39.9) Hyperlipidemia Surgical History No significant past surgical history Family History Other No significant family history Social History Smoking Status: Never smoker alcohol intake: current alcohol intake frequency: a few times a week substance use type: denies use current occupational status: employed Travel in the last 8 weeks: None household members: family housing: house ROS Obtained: Yes All systems reviewed & no additional complaints except as documented Physical Exam General General appearance: alert and in no apparent distress Head Head exam: atraumatic, normocephalic and normal inspection Eye Eye exam: Present PERRL, EOMI and other (Left eye conjunctival injection and watery drainage. Extraocular movements intact, pain reported with downward and rightward movements. Pupil round and reactive. Visual acuity 20/25 right eye, 20/40 left eye.) ENT ENT exam: Present normal exam, normal oropharynx, mucous membranes moist, TM's normal bilaterally and normal external ear exam Neck Neck exam: Present normal inspection, full ROM and trachea midline; Absent meningismus or lymphadenopathy Chest Chest inspection: Present normal inspection and symmetric chest wall rise; Absent tenderness Respiratory Respiratory exam: Present normal lung sounds bilaterally; Absent respiratory distress Cardiovascular Cardiovascular exam: Present regular rate and normal rhythm; Absent JVD Abdominal Exam Abdominal exam: Present soft and normal bowel sounds; Absent distention, tenderness or guarding Extremities Exam Extremities exam: Present normal inspection, full ROM and normal capillary refill; Absent calf tenderness Back Exam Back exam: Present normal inspection; Absent tenderness Neurological Exam Neurological exam: Present alert and oriented X3 Psychiatric Psychiatric exam: Present normal affect and normal mood Skin Skin exam: Present warm, dry, intact and normal color Lymphatic Lymphatic Findings: no adenopathy Medical Decision Making Medical Records Medical records reviewed: Yes I reviewed the patient's medical records. Jakob Inquiry Pt receiving controlled substance: No Vital Signs: 03/11/24 08:48 03/11/24 08:51 03/11/24 09:01 Temperature 98.5 F Temperature Source Oral Pulse Rate 74 64 Pulse Rate [Right Radial] 79 Respiratory Rate 18 Blood Pressure 139/81 126/83 Blood Pressure [Right Arm] 139/81 Blood Pressure Mean [Right Arm] 100 Blood Pressure Source [Right Arm] Automatic Cuff Blood Pressure Position [Right Arm] Supine 02 Sat by Pulse Oximetry 99 100 100 Oxygen Delivery Method Room Air 03/11/24 09:30 Temperature Temperature Source Pulse Rate Pulse Rate [Right Radial] Respiratory Rate Blood Pressure 125/81 Blood Pressure [Right Arm] Blood Pressure Mean [Right Arm] Blood Pressure Source [Right Arm] Blood Pressure Position [Right Arm] 02 Sat by Pulse Oximetry 96 Oxygen Delivery Method Lab Data Lab Results 03/11/24 09:18: WBC 4.8, RBC 4.82, Hgb 11.4 L, Hct 38.4, MCV 79.7 L, MCH 23.7 L, MCHC 29.7 L, RDW 15.8, Plt Count 306, MPV 7.6, Neut % (Auto) 42.8, Lymph % (Auto) 48.7, Dickinson % (Auto) 5.3, Eos % (Auto) 2.2, Baso % (Auto) 0.9, Neut # (Auto) 2.1, Lymph # (Auto) 2.4, Dickinson # (Auto) 0.3, Eos # (Auto) 0.1, Baso # (Auto) 0.1, Sodium 140, Potassium 4.2, Chloride 103, Carbon Dioxide 28, Anion Gap 13.2, BUN 18 H, Creatinine 0.90, Estimated Creat Clear 79, Estimated GFR 70, Est GFR ( Amer) 85, Glucose 99, Calcium 9.6, Serum HCG, Qual Negative 03/11/24 09:18 03/11/24 09:18 Orders (Tests/Meds): ED MEDICATIONS Generic Name Dose Route Start Last Admin Trade Name Freq PRN Reason Stop Dose Admin Sodium Chloride 10 ml 03/11/24 10:08 03/11/24 10:09 Sodium Chloride 0.9% 10ml Syr (Rad Only) IV 04/10/24 10:07 10 ml NEEDED PRN Administration Maintain IV Site Discontinued Medications Generic Name Dose Route Start Last Admin Trade Name Freq PRN Reason Stop Dose Admin Acetaminophen 650 mg 03/11/24 09:03 03/11/24 09:24 Acetaminophen 325mg Tab PO 03/11/24 09:04 650 mg ONCE ONE Administration Fluorescein Sodium 1 mg 03/11/24 09:03 03/11/24 09:26 Fluorescein Sodium 1mg Strip OP 03/11/24 09:04 1 mg ONCE ONE Administration Ibuprofen 600 mg 03/11/24 09:03 03/11/24 09:24 Ibuprofen 600 Mg Tablet PO 03/11/24 09:04 600 mg ONCE ONE Administration Iopamidol 100 ml 03/11/24 10:08 03/11/24 10:09 Iopamidol-370 (76%);100ml Bottle IV 03/11/24 10:09 100 ml ONCE ONE Administration Tetracaine HCl 0 ml 03/11/24 09:03 03/11/24 09:28 Tetracaine 0.5% Opth Nella 15ml OP 03/11/24 09:04 1 ml ONCE ONE Administration ORDERS Category Date Time Status CT orbit BI w con Stat Cat Scan 03/11/24 09:03 Completed BMP [Basic Metabolic Panel] Stat Lab 03/11/24 09:18 Completed CBC w/Auto Diff [Complete Blood Count Auto Diff] Stat Lab 03/11/24 09:18 Completed Serum Beta HCG [HCG Qualitative, Serum] Stat Lab 03/11/24 09:18 Completed Medical Decision Narrative: In summary, patient is a 38-year-old female with history of HTN, HLD, evaluated in the emergency department today due to left eye pain. On arrival, patient is hemodynamically stable. On examination, patient has left eye conjunctival injection, watery discharge, decreased visual acuity. Differential diagnosis includes but is not limited to foreign body, conjunctivitis, orbital cellulitis, corneal abrasion. Patient given oral Tylenol/ibuprofen. Tetracaine and fluorescein applied to left eye and examined under Landa lamp. No signs of corneal abrasion seen. No significant findings on Landa lamp examination. Workup initiated including BMP, CBC, CT orbits with contrast. Labs independently interpreted by me, no significant findings. Imaging independently interpreted by me and significant for CT demonstrating normal orbits. On reevaluation, patient is resting comfortably in no distress. She likely has conjunctivitis. Will plan to treat with topical erythromycin. She is appropriate for discharge at this time. Prescription for erythromycin provided. Patient given information for ophthalmology follow-up. Patient counseled on home care, given strict return precautions and agreeable to plan. Critical Care Critical Care Time Critical Care Time: No
[2024-03-11] MEDS: IBUPROFEN 600 MG TABLET PO (09:24)
[2024-03-11] MEDS: ACETAMINOPHEN 325MG TAB 650 MG PO (09:24)
[2024-03-11] MEDS: FLUORESCEIN SODIUM 1MG STRIP 1 MG OP (09:26)
[2024-03-11] MEDS: TETRACAINE 0.5% OPTH SOL 15ML OP (09:28)
[2024-03-11 09:29] LABS: Basophils # 0.1 K/mm3 (0-0.2); Basophils % 0.9 % (0.1-2.0); Eosinophils # 0.1 K/mm3 (0.0-0.4); Eosinophils % 2.2 % (0.1-12.0); Hematocrit 38.4 % (37.0-47.0); Hemoglobin 11.4 g/dL (12.2-16.2); Lymphocytes # 2.4 K/mm3 (0.7-4.5); Lymphocytes % 48.7 % (10-50); Mean Corpuscular HGB Conc 29.7 g/dL (31.8-35.4); Mean Corpuscular Hemoglobin 23.7 pg (27.0-31.2); Mean Corpuscular Volume 79.7 fl (81-99); Mean Platelet Volume 7.6 fl (7.4-10.4); Monocytes # 0.3 K/mm3 (0.1-1.0); Monocytes % 5.3 % (1.7-9.3); Neutrophils # 2.1 K/mm3 (1.8-7.8); Neutrophils % 42.8 % (37.0-80.0); Platelet Count 306 K/mm3 (142-424); Red Blood Count 4.82 M/mm3 (4.20-5.40); Red Cell Distribution Width 15.8 % (11.5-17.5); White Blood Count 4.8 K/mm3 (4.8-10.8)
[2024-03-11 09:43] LABS: Anion Gap 13.2 mEq/L (5-15); Blood Urea Nitrogen 18 mg/dl (7-17); Calcium 9.6 mg/dl (8.4-10.2); Carbon Dioxide 28 mmol/L (22.0-30.0); Chloride 103 mmol/L (98-107); Creatinine Clearance Estimated 79 mL/min (50-200); Estimated Glomerular Filt Rate 70 ml/min (>60); GFR (African American) 85 ML/MIN (>60); Glucose 99 mg/dl (74-100); Potassium 4.2 mmoL/L (3.5-5.1); Sodium 140 mmol/L (136-145)
[2024-03-11 09:58] LABS: HCG Qualitative, Serum Negative (Negative)
[2024-03-11] MEDS: SODIUM CHLORIDE 0.9% 10ML SYR (RAD ONLY) 10 ML IV (10:09)
[2024-03-11] MEDS: IOPAMIDOL-370 (76%);100ML BOTTLE 100 ML IV (10:09)
== END 2024-03-11 11:28 | disposition home or self-care (01) ==
PROVIDERS: Emergency Provider Student in an Organized Health Care Education/Training Program; PCP Student in an Organized Health Care Education/Training Program
DX: H10.32 Unspecified acute conjunctivitis, left eye (principal); H57.12 Ocular pain, left eye; I10 Essential (primary) hypertension; E78.5 Hyperlipidemia, unspecified
CPT/HCPCS: 70481; 80048; 84703; 85025; 99284; Q9967

== ENCOUNTER 2024-04-18 14:31 | Emergency (ER) | payer SELFPAY ==
[2024-04-18 14:31] VITALS: BP 167/96; PULSE 102; RESP 22; TEMP 36.7; O2SAT 98; BMI 45.1
--- NOTE | 2024-04-18 14:33 | ED_ITS ---
<Statement entered by Madi Anderson MD - 04/18/24 18:56> I was consulted by the ALEJO, and we discussed the complexity of the problems being addressed. I approved the treatment and management plan for this patient's care in the emergency department, thus performing a substantive portion of the medical decision making. Madi Anderson MD Discharge Plan Disposition Patient Disposition: Home, Self-Care Condition: Good Prescriptions Prescriptions: New doxycycline hyclate 100 mg capsule 100 mg PO BID 14 Days Qty: 28 0RF prednisone 50 mg tablet 50 mg PO DAILY 5 Days Qty: 5 0RF rqpddxedkuuuzxx-lrieknepi-[id number] [Bromfed DM] 2-30-10 mg/5 mL syrup 5 ml PO Q4H PRN (Reason: cold symptoms) Qty: 118 0RF No Action venlafaxine 37.5 mg capsule,extended release 24hr 37.5 mg PO DAILY hydroxyzine pamoate 25 mg capsule 25 mg PO HS metformin 500 mg tablet 500 mg PO DAILY hydrochlorothiazide 12.5 mg tablet 12.5 mg PO DAILY Qty: 60 4RF atorvastatin 10 mg tablet 10 mg PO DAILY Qty: 90 3RF ergocalciferol (vitamin D2) 1,250 mcg (50,000 unit) capsule 50,000 unit PO WEEKLY Patient Comments: TAKE 1 CAPSULE BY MOUTH EVERY THURSDAY naproxen 500 mg tablet 500 mg PO BID Qty: 30 0RF erythromycin 5 mg/gram (0.5 %) ointment 1.25 cm ophthalmic (eye) QID 7 Days Qty: 3.5 0RF Referrals Follow up/Referrals: Livia Scahfer PA [Primary Care Provider] - See instructions Activity Restrictions/Add. Instructions Additional Instructions/Restrictions: In 1Follow-up with your PCP or sooner to monitor progress. Return to ER as needed for any worsening signs or symptoms. Clinical Impressions Clinical Impression: Community acquired pneumonia Qualifiers: Laterality: right Lung location: lower lobe of lung Qualified Code(s): J18.9 - Pneumonia, unspecified organism Instructions Patient Instructions: DI for Pneumonia -- Adult Discharge ED Provider: Madi Anderson General Adult HPI <PIPPA Tyler - Last Filed: 04/18/24 16:13> General Chief complaint: Shortness of Breath/Dyspnea Stated complaint: soa cough congestion Time Seen by Provider: 04/18/24 14:33 History of Present Illness HPI narrative: Patient presents for evaluation of cough for months. Patient states that she thought her symptoms began with an upper respiratory tract infection however the cough never left. She reports it is worse when lying down and better when sitting up. Patient has no known asthma history however she vapes Related Data Home Medications Medication Instructions Recorded Confirmed hydroxyzine pamoate 25 mg capsule 25 mg PO HS 12/24/23 03/02/24 metformin 500 mg tablet 500 mg PO DAILY Weight loss 12/24/23 03/02/24 venlafaxine 37.5 mg 37.5 mg PO DAILY 12/24/23 03/02/24 capsule,extended release 24 hr ergocalciferol (vitamin D2) 1,250 50,000 unit PO WEEKLY 01/01/24 03/02/24 mcg (50,000 unit) capsule Previous Rx's Medication Instructions Recorded hydrochlorothiazide 12.5 mg tablet 12.5 mg PO DAILY #60 tabs 02/05/24 atorvastatin 10 mg tablet 10 mg PO DAILY #90 tabs 02/08/24 erythromycin 5 mg/gram (0.5 %) eye 1.25 cm ophthalmic (eye) QID 7 03/11/24 ointment days #3.5 grams naproxen 500 mg tablet 500 mg PO BID #30 tabs 03/11/24 zlehyerlbkvqtzh-wpdujegckwielqp-WK 5 ml PO Q4H PRN cold symptoms #118 04/18/24 2 mg-30 mg-10 mg/5 mL oral syrup mL (Bromfed DM) doxycycline hyclate 100 mg capsule 100 mg PO BID 14 days #28 caps 04/18/24 prednisone 50 mg tablet 50 mg PO DAILY 5 days #5 tabs 04/18/24 Allergies Allergy/AdvReac Type Severity Reaction Status Date / Time No Known Allergies Allergy Verified 03/02/24 13:53 [facility] <PIPPA Tyler - Last Filed: 04/18/24 16:13> [facility] Disclaimer: The information contained in this section may have been updated after the patient was seen, as this information can be updated by other users. Medical History Depression PCO (posterior capsular opacification), bilateral Family history of breast cancer PGM, post-menopausal Contusion of hand Recurrent vaginitis High risk HPV infection Body mass index (BMI) greater than 40 Vitamin D deficiency Pre-diabetes Obesity HTN (hypertension), benign Sleep apnea in adult Obesity (BMI 30-39.9) Hyperlipidemia Surgical History No significant past surgical history Family History Other No significant family history Social History Smoking Status: Former smoker tobacco type: cigarettes packs per day: 1 and e- cigarettes alcohol intake: current alcohol intake frequency: a few times a week substance use type: denies use current occupational status: employed Travel in the last 8 weeks: None household members: family housing: house <PIPPA Tyler - Last Filed: 04/18/24 16:13> ROS Obtained: Yes Systems reviewed as appropriate & no additional complaints except as documented Physical Exam <PIPPA Tyler - Last Filed: 04/18/24 16:13> General General appearance: alert and in no apparent distress Respiratory Respiratory exam: Present normal lung sounds bilaterally; Absent respiratory distress, wheezes, stridor or accessory muscle use Cardiovascular Cardiovascular exam: Present regular rate, normal rhythm and normal heart sounds Neurological Exam Neurological exam: Present alert and oriented X3 Medical Decision Making <PIPPA Tyler - Last Filed: 04/18/24 16:13> Medical Records Medical records reviewed: Yes I reviewed the patient's medical records. Jakob Inquiry Pt receiving controlled substance: No Vital Signs: 04/18/24 14:31 04/18/24 14:36 04/18/24 15:00 Temperature 98.1 F Temperature Source Oral Pulse Rate 101 H 91 H Pulse Rate [Left Radial] 102 H Respiratory Rate 22 Blood Pressure 167/96 H 147/103 H Blood Pressure [Right Arm] 167/96 H Blood Pressure Mean [Right Arm] 119 Blood Pressure Position [Right Arm] Sitting 02 Sat by Pulse Oximetry 98 95 94 L Oxygen Delivery Method Room Air Room Air Room Air 04/18/24 15:30 04/18/24 16:00 04/18/24 16:19 Temperature 98.1 F Temperature Source Pulse Rate 83 85 81 Pulse Rate [Left Radial] Respiratory Rate 16 Blood Pressure 131/91 H 131/94 H 131/94 H Blood Pressure [Right Arm] Blood Pressure Mean [Right Arm] Blood Pressure Position [Right Arm] 02 Sat by Pulse Oximetry 95 96 Oxygen Delivery Method Room Air Room Air Room Air Lab Data Lab results reviewed: Yes I reviewed the patient's lab results. Lab Results 04/18/24 14:37: Chlamy pneumoniae PCR Not detected, Adenovirus (PCR) Not detected, B. pertussis DNA (PCR) Not detected, Coronavirus OC43 (PCR) Not detected, Coronavirus HKU1 (PCR) Not detected, Coronavirus 229E (PCR) Not detected, SARS-CoV-2 (PCR) Not detected, Coronavirus NL63 (PCR) Not detected, Human Metapneumovir PCR Not detected, Influenza A (H1) PCR Not detected, Influ A (H1N1/09) PCR Not detected, Influenza A (H3) PCR Not detected, Influenza Type A (PCR) Not detected, Influenza Type B (PCR) Not detected, M. pneumoniae (PCR) Not detected, Parainfluenza 1 (PCR) Not detected, Parainfluenza 2 (PCR) Not detected, Parainfluenza 3 (PCR) Not detected, Parainfluenza 4 (PCR) Not detected, RSV (PCR) Not detected, Entero/Rhino (PCR) Not detected 04/18/24 14:51: WBC 4.9, RBC 5.31, Hgb 12.7, Hct 42.1, MCV 79.3 L, MCH 23.9 L, M CHC 30.1 L, RDW 17.1, Plt Count 292, MPV 7.8, Neut % (Auto) 40.4, Lymph % (Auto) 43.8, Cotton % (Auto) 4.9, Eos % (Auto) 10.2, Baso % (Auto) 0.8, Neut # (Auto) 2.0, Lymph # (Auto) 2.2, Cotton # (Auto) 0.2, Eos # (Auto) 0.5 H, Baso # (Auto) 0.0, Sodium 136, Potassium 3.7, Chloride 107, Carbon Dioxide 24, Anion Gap 8.7, BUN 8, Creatinine 0.60, Estimated Creat Clear 119, Estimated GFR 112, Est GFR ( Amer) 135, Glucose 110 H, Calcium 9.5, Magnesium 1.9, Total Bilirubin 0.8, AST 28, ALT 25, Alkaline Phosphatase 73, NT-Pro-B Natriuret Pep 79.1, Total Protein 7.7, Albumin 4.3, Globulin 3.4 H, Albumin/Globulin Ratio 1.3, Procalcitonin 0.073, Serum HCG, Qual Negative 04/18/24 14:57: VBG pH 7.41, VBG pCO2 34.2 L, VBG pO2 64.2 H, VBG HCO3 21.2 L, V BG Total CO2 22.3 L, VBG O2 Saturation 92.7 H, VBG Base Excess -3.4 L, VBG Lactic Acid 1.8 04/18/24 14:51 04/18/24 14:51 Orders (Tests/Meds): ED MEDICATIONS Discontinued Medications Generic Name Dose Route Start Last Admin Trade Name Freq PRN Reason Stop Dose Admin Acetaminophen 1,000 mg 04/18/24 14:43 04/18/24 15:04 Acetaminophen 1,000mg/100ml Vial IV 04/18/24 14:44 1,000 mg ONCE ONE Administration Albuterol/Ipratropium 3 ml 04/18/24 14:43 04/18/24 15:05 Ipratropium/Albuterol 3 Ml Neb IH 04/18/24 14:44 3 ml ONCE ONE Administration Dexamethasone Sodium Phosphate 10 mg 04/18/24 14:43 04/18/24 15:04 Dexamethasone 4mg/Ml 5ml Mdv IV 04/18/24 14:44 10 mg ONCE ONE Administration Ketorolac Tromethamine 15 mg 04/18/24 14:43 04/18/24 15:05 Ketorolac 30mg/Ml Vial IV 04/18/24 14:44 15 mg ONCE ONE Administration ORDERS Category Date Time Status Chest XR -- portable [XR chest portable] Stat Exams 04/18/24 14:43 Completed BNP [NT Pro Brain Natriuretic Pep.] Stat Lab 04/18/24 14:51 Completed CBC w/Auto Diff [Complete Blood Count Auto Diff] Stat Lab 04/18/24 14:51 Completed CMP [Comprehensive Metabolic Panel] Stat Lab 04/18/24 14:51 Completed Full Resp Panel w/COVID ([facility]) Routine Lab 04/18/24 14:37 Completed HCG Qualitative, Serum Stat Lab 04/18/24 14:51 Completed Magnesium Stat Lab 04/18/24 14:51 Completed Procalcitonin Stat Lab 04/18/24 14:51 Completed VBG [Venous Blood Gas] Stat RT 04/18/24 14:57 Completed Medical Decision Narrative: In summary patient is a 38-year-old female who presents to the emergency department for evaluation of cough for a month. Patient is dynamically stable upon arrival, afebrile. Physical exam is significant for normal breath sounds no adventitious sounds slightly hoarse voice. Differential diagnosis includes COPD exacerbation viral or bacterial upper respiratory tract infection versus pneumonia etc. Initial workup will be conducted with plain film chest x-ray, full respiratory panel, hematologic labs. Initial interventions include Tylenol Toradol Decadron DuoNeb continuous pulse oximetry and cardiac monitoring. Initial workup reviewed by me shows normal white count however my informal interpretation of her plain film x-ray shows right lower lobe infiltrate suggestive of pneumonia. Remainder of her hematologic labs are nonactionable.. Upon repeat evaluation patient reported feeling improvement with her cough.. Given this patient is appropriate for discharge with a prescription for doxycycline Bromfed and steroids. <Madi Anderson MD - Last Filed: 04/18/24 15:14> Vital Signs: 04/18/24 14:31 04/18/24 14:36 04/18/24 15:00 Temperature 98.1 F Temperature Source Oral Pulse Rate 101 H 91 H Pulse Rate [Left Radial] 102 H Respiratory Rate 22 Blood Pressure 167/96 H 147/103 H Blood Pressure [Right Arm] 167/96 H Blood Pressure Mean [Right Arm] 119 Blood Pressure Position [Right Arm] Sitting 02 Sat by Pulse Oximetry 98 95 94 L Oxygen Delivery Method Room Air Room Air Room Air 04/18/24 15:30 04/18/24 16:00 04/18/24 16:19 Temperature 98.1 F Temperature Source Pulse Rate 83 85 81 Pulse Rate [Left Radial] Respiratory Rate 16 Blood Pressure 131/91 H 131/94 H 131/94 H Blood Pressure [Right Arm] Blood Pressure Mean [Right Arm] Blood Pressure Position [Right Arm] 02 Sat by Pulse Oximetry 95 96 Oxygen Delivery Method Room Air Room Air Room Air Lab Data Lab Results 04/18/24 14:37: Chlamy pneumoniae PCR Not detected, Adenovirus (PCR) Not detected, B. pertussis DNA (PCR) Not detected, Coronavirus OC43 (PCR) Not detected, Coronavirus HKU1 (PCR) Not detected, Coronavirus 229E (PCR) Not detected, SARS-CoV-2 (PCR) Not detected, Coronavirus NL63 (PCR) Not detected, Human Metapneumovir PCR Not detected, Influenza A (H1) PCR Not detected, Influ A (H1N1/09) PCR Not detected, Influenza A (H3) PCR Not detected, Influenza Type A (PCR) Not detected, Influenza Type B (PCR) Not detected, M. pneumoniae (PCR) Not detected, Parainfluenza 1 (PCR) Not detected, Parainfluenza 2 (PCR) Not detected, Parainfluenza 3 (PCR) Not detected, Parainfluenza 4 (PCR) Not detected, RSV (PCR) Not detected, Entero/Rhino (PCR) Not detected 04/18/24 14:51: WBC 4.9, RBC 5.31, Hgb 12.7, Hct 42.1, MCV 79.3 L, MCH 23.9 L, M CHC 30.1 L, RDW 17.1, Plt Count 292, MPV 7.8, Neut % (Auto) 40.4, Lymph % (Auto) 43.8, Cotton % (Auto) 4.9, Eos % (Auto) 10.2, Baso % (Auto) 0.8, Neut # (Auto) 2.0, Lymph # (Auto) 2.2, Cotton # (Auto) 0.2, Eos # (Auto) 0.5 H, Baso # (Auto) 0.0, Sodium 136, Potassium 3.7, Chloride 107, Carbon Dioxide 24, Anion Gap 8.7, BUN 8, Creatinine 0.60, Estimated Creat Clear 119, Estimated GFR 112, Est GFR ( Amer) 135, Glucose 110 H, Calcium 9.5, Magnesium 1.9, Total Bilirubin 0.8, AST 28, ALT 25, Alkaline Phosphatase 73, NT-Pro-B Natriuret Pep 79.1, Total Protein 7.7, Albumin 4.3, Globulin 3.4 H, Albumin/Globulin Ratio 1.3, Procalcitonin 0.073, Serum HCG, Qual Negative 04/18/24 14:57: VBG pH 7.41, VBG pCO2 34.2 L, VBG pO2 64.2 H, VBG HCO3 21.2 L, V BG Total CO2 22.3 L, VBG O2 Saturation 92.7 H, VBG Base Excess -3.4 L, VBG Lactic Acid 1.8 Orders (Tests/Meds): ED MEDICATIONS Discontinued Medications Generic Name Dose Route Start Last Admin Trade Name Owen PRN Reason Stop Dose Admin Acetaminophen 1,000 mg 04/18/24 14:43 04/18/24 15:04 Acetaminophen 1,000mg/100ml Vial IV 04/18/24 14:44 1,000 mg ONCE ONE Administration Albuterol/Ipratropium 3 ml 04/18/24 14:43 04/18/24 15:05 Ipratropium/Albuterol 3 Ml Neb IH 04/18/24 14:44 3 ml ONCE ONE Administration Dexamethasone Sodium Phosphate 10 mg 04/18/24 14:43 04/18/24 15:04 Dexamethasone 4mg/Ml 5ml Mdv IV 04/18/24 14:44 10 mg ONCE ONE Administration Ketorolac Tromethamine 15 mg 04/18/24 14:43 04/18/24 15:05 Ketorolac 30mg/Ml Vial IV 04/18/24 14:44 15 mg ONCE ONE Administration ORDERS Category Date Time Status Chest XR -- portable [XR chest portable] Stat Exams 04/18/24 14:43 Completed BNP [NT Pro Brain Natriuretic Pep.] Stat Lab 04/18/24 14:51 Completed CBC w/Auto Diff [Complete Blood Count Auto Diff] Stat Lab 04/18/24 14:51 Completed CMP [Comprehensive Metabolic Panel] Stat Lab 04/18/24 14:51 Completed Full Resp Panel w/COVID ([facility]) Routine Lab 04/18/24 14:37 Completed HCG Qualitative, Serum Stat Lab 04/18/24 14:51 Completed Magnesium Stat Lab 04/18/24 14:51 Completed Procalcitonin Stat Lab 04/18/24 14:51 Completed VBG [Venous Blood Gas] Stat RT 04/18/24 14:57 Completed ECG Data Tracing #1: Independently interpreted by me rate is 83, rhythm is regular, axis is normal, no ST elevation in anatomical contiguous leads, QTc 454 <Krzysztof Becerril MD - Last Filed: 04/19/24 07:05> Vital Signs: 04/18/24 14:31 04/18/24 14:36 04/18/24 15:00 Temperature 98.1 F Temperature Source Oral Pulse Rate 101 H 91 H Pulse Rate [Left Radial] 102 H Respiratory Rate 22 Blood Pressure 167/96 H 147/103 H Blood Pressure [Right Arm] 167/96 H Blood Pressure Mean [Right Arm] 119 Blood Pressure Position [Right Arm] Sitting 02 Sat by Pulse Oximetry 98 95 94 L Oxygen Delivery Method Room Air Room Air Room Air 04/18/24 15:30 04/18/24 16:00 04/18/24 16:19 Temperature 98.1 F Temperature Source Pulse Rate 83 85 81 Pulse Rate [Left Radial] Respiratory Rate 16 Blood Pressure 131/91 H 131/94 H 131/94 H Blood Pressure [Right Arm] Blood Pressure Mean [Right Arm] Blood Pressure Position [Right Arm] 02 Sat by Pulse Oximetry 95 96 Oxygen Delivery Method Room Air Room Air Room Air Lab Data Lab Results 04/18/24 14:37: Chlamy pneumoniae PCR Not detected, Adenovirus (PCR) Not detected, B. pertussis DNA (PCR) Not detected, Coronavirus OC43 (PCR) Not detected, Coronavirus HKU1 (PCR) Not detected, Coronavirus 229E (PCR) Not detected, SARS-CoV-2 (PCR) Not detected, Coronavirus NL63 (PCR) Not detected, Human Metapneumovir PCR Not detected, Influenza A (H1) PCR Not detected, Influ A (H1N1/09) PCR Not detected, Influenza A (H3) PCR Not detected, Influenza Type A (PCR) Not detected, Influenza Type B (PCR) Not detected, M. pneumoniae (PCR) Not detected, Parainfluenza 1 (PCR) Not detected, Parainfluenza 2 (PCR) Not detected, Parainfluenza 3 (PCR) Not detected, Parainfluenza 4 (PCR) Not detected, RSV (PCR) Not detected, Entero/Rhino (PCR) Not detected 04/18/24 14:51: WBC 4.9, RBC 5.31, Hgb 12.7, Hct 42.1, MCV 79.3 L, MCH 23.9 L, M CHC 30.1 L, RDW 17.1, Plt Count 292, MPV 7.8, Neut % (Auto) 40.4, Lymph % (Auto) 43.8, Cotton % (Auto) 4.9, Eos % (Auto) 10.2, Baso % (Auto) 0.8, Neut # (Auto) 2.0, Lymph # (Auto) 2.2, Cotton # (Auto) 0.2, Eos # (Auto) 0.5 H, Baso # (Auto) 0.0, Sodium 136, Potassium 3.7, Chloride 107, Carbon Dioxide 24, Anion Gap 8.7, BUN 8, Creatinine 0.60, Estimated Creat Clear 119, Estimated GFR 112, Est GFR ( Amer) 135, Glucose 110 H, Calcium 9.5, Magnesium 1.9, Total Bilirubin 0.8, AST 28, ALT 25, Alkaline Phosphatase 73, NT-Pro-B Natriuret Pep 79.1, Total Protein 7.7, Albumin 4.3, Globulin 3.4 H, Albumin/Globulin Ratio 1.3, Procalcitonin 0.073, Serum HCG, Qual Negative 04/18/24 14:57: VBG pH 7.41, VBG pCO2 34.2 L, VBG pO2 64.2 H, VBG HCO3 21.2 L, V BG Total CO2 22.3 L, VBG O2 Saturation 92.7 H, VBG Base Excess -3.4 L, VBG Lactic Acid 1.8 Orders (Tests/Meds): ED MEDICATIONS Discontinued Medications Generic Name Dose Route Start Last Admin Trade Name Owen PRN Reason Stop Dose Admin Acetaminophen 1,000 mg 04/18/24 14:43 04/18/24 15:04 Acetaminophen 1,000mg/100ml Vial IV 04/18/24 14:44 1,000 mg ONCE ONE Administration Albuterol/Ipratropium 3 ml 04/18/24 14:43 04/18/24 15:05 Ipratropium/Albuterol 3 Ml Neb IH 04/18/24 14:44 3 ml ONCE ONE Administration Dexamethasone Sodium Phosphate 10 mg 04/18/24 14:43 04/18/24 15:04 Dexamethasone 4mg/Ml 5ml Mdv IV 04/18/24 14:44 10 mg ONCE ONE Administration Ketorolac Tromethamine 15 mg 04/18/24 14:43 04/18/24 15:05 Ketorolac 30mg/Ml Vial IV 04/18/24 14:44 15 mg ONCE ONE Administration ORDERS Category Date Time Status Chest XR -- portable [XR chest portable] Stat Exams 04/18/24 14:43 Completed BNP [NT Pro Brain Natriuretic Pep.] Stat Lab 04/18/24 14:51 Completed CBC w/Auto Diff [Complete Blood Count Auto Diff] Stat Lab 04/18/24 14:51 Completed CMP [Comprehensive Metabolic Panel] Stat Lab 04/18/24 14:51 Completed Full Resp Panel w/COVID ([facility]) Routine Lab 04/18/24 14:37 Completed HCG Qualitative, Serum Stat Lab 04/18/24 14:51 Completed Magnesium Stat Lab 04/18/24 14:51 Completed Procalcitonin Stat Lab 04/18/24 14:51 Completed VBG [Venous Blood Gas] Stat RT 04/18/24 14:57 Completed Medical Decision Narrative: In summary patient is a 38-year-old female who presents to the emergency department for evaluation of cough for a month. Patient is dynamically stable upon arrival, afebrile. Physical exam is significant for normal breath sounds no adventitious sounds slightly hoarse voice. Differential diagnosis includes COPD exacerbation viral or bacterial upper respiratory tract infection versus pneumonia etc. Initial workup will be conducted with plain film chest x-ray, full respiratory panel, hematologic labs. Initial interventions include Tylenol Toradol Decadron DuoNeb continuous pulse oximetry and cardiac monitoring. Initial workup reviewed by me shows normal white count however my informal interpretation of her plain film x-ray shows right lower lobe infiltrate suggestive of pneumonia. Remainder of her hematologic labs are nonactionable.. Upon repeat evaluation patient reported feeling improvement with her cough.. Given this patient is appropriate for discharge with a prescription for doxycycline Bromfed and steroids. I was consulted by the ALEJO, and we discussed the complexity of the problems being addressed. I approved the treatment and management plan for this patient?s care in the Emergency Department, thus performing a substantive portion of the medical decision making. Krzysztof Becerril MD Critical Care <PIPPA Tyler - Last Filed: 04/18/24 16:13> Critical Care Time Critical Care Time: No
[2024-04-18 14:36] VITALS: BP 167/96; PULSE 101; O2SAT 95
--- NOTE | 2024-04-18 14:43 | XR_ITS ---
PROCEDURE INFORMATION: Exam: XR Chest Exam date and time: 04/18/2024 3:52 PM Age: 38 years old Clinical indication: Shortness of breath; Additional info: Shortness of breath and cough TECHNIQUE: Imaging protocol: Radiologic exam of the chest. Views: 1 view. COMPARISON: CR XR CHEST 2V 07/17/2021 5:29 PM FINDINGS: Lungs: No evidence of acute pulmonary disease or infiltrates Pleural spaces: No large effusion or pneumothorax. Heart/Mediastinum: Stable cardiac and mediastinal contours. Bones/joints: No evidence of acute osseous abnormalities within the visualized portions of the thoracic spine and ribs. Osseous structures appear appropriate for patient age. Other findings: The examination is limited by under penetration. IMPRESSION: No dense parenchymal consolidation, pleural effusion, or pneumothorax.
[2024-04-18 14:54] LABS: Adenovirus,PCR Not Detected (NotDetected); Bordetella Pertussis Not Detected (NotDetected); Chlamydophila Pneumoniae, PCR Not Detected (NotDetected); Coronavirus 19, PCR Not Detected (NotDetected); Coronavirus 229E Not Detected (NotDetected); Coronavirus NL63 Not Detected (NotDetected); Coronavirus OC43 Not Detected (NotDetected); Coronovirus HKU1,PCR Not Detected (NotDetected); Human Metapneumovirus Not Detected (NotDetected); Influenza A, PCR Not Detected (NotDetected); Influenza AH1, 2009 Not Detected (NotDetected); Influenza AH1, PCR Not Detected (NotDetected); Influenza AH3,PCR Not Detected (NotDetected); Influenza B, PCR Not Detected (NotDetected); Mycoplasma Pneumoniae, PCR Not Detected (NotDetected); Parainfluenza 1, PCR Not Detected (NotDetected); Parainfluenza 2, PCR Not Detected (NotDetected); Parainfluenza 3, PCR Not Detected (NotDetected); Parainfluenza 4, PCR Not Detected (NotDetected); Respiratory Syncytial Virus Not Detected (NotDetected); Rhinovirus/Enterovirus Not Detected (NotDetected)
--- NOTE | 2024-04-18 14:55 | ECG_ITS ---
APPROVED REPORT Exam: Resting ECG HR:83 bpm ECG Measurements Heart Rate 83 AXES SD 126 P 47 QRSd 75 QRS 29 QT 414 T 62 QTc 454 Conclusion SINUS RHYTHM NONSPECIFIC T-WAVE ABNORMALITY BORDERLINE ECG Electronically signed by : GLO WILCOX, 04/20/2024 10:27:34
[2024-04-18 15:00] VITALS: BP 147/103; PULSE 91; O2SAT 94
[2024-04-18 15:01] LABS: Basophils % 0.8 % (0.1-2.0); Eosinophils # 0.5 K/mm3 (0.0-0.4); Eosinophils % 10.2 % (0.1-12.0); Hematocrit 42.1 % (37.0-47.0); Hemoglobin 12.7 g/dL (12.2-16.2); Lymphocytes # 2.2 K/mm3 (0.7-4.5); Lymphocytes % 43.8 % (10-50); Mean Corpuscular HGB Conc 30.1 g/dL (31.8-35.4); Mean Corpuscular Hemoglobin 23.9 pg (27.0-31.2); Mean Corpuscular Volume 79.3 fl (81-99); Mean Platelet Volume 7.8 fl (7.4-10.4); Monocytes # 0.2 K/mm3 (0.1-1.0); Monocytes % 4.9 % (1.7-9.3); Neutrophils % 40.4 % (37.0-80.0); Platelet Count 292 K/mm3 (142-424); Red Blood Count 5.31 M/mm3 (4.20-5.40); Red Cell Distribution Width 17.1 % (11.5-17.5); White Blood Count 4.9 K/mm3 (4.8-10.8)
[2024-04-18 15:04] LABS: Lactate Venous 1.8 mmol/L (0.4-2.0); VBG Base Excess -3.4 mmol/L (-2.4-2.3); VBG HCO3 21.2 mmol/L (23-30); VBG Oxygen Saturation 92.7 % (50-70); VBG PCO2 34.2 mmol/L (35-51); VBG PH 7.41 mmol/L (7.31-7.41); VBG PO2 64.2 mmol/L (28-40); VBG Total CO2 22.3 mmol/L (23-27)
[2024-04-18] MEDS: ACETAMINOPHEN 1,000MG/100ML VIAL 1000 MG IV (15:04)
[2024-04-18] MEDS: DEXAMETHASONE 4MG/ML 5ML MDV 10 MG IV (15:04)
[2024-04-18] MEDS: IPRATROPIUM/ALBUTEROL 3 ML NEB IH (15:05)
[2024-04-18] MEDS: KETOROLAC 30MG/ML VIAL 15 MG IV (15:05)
[2024-04-18 15:13] LABS: Alanine Aminotransferase 25 U/L (12-78); Albumin Level 4.3 g/dl (3.5-5.0); Albumin/Globulin Ratio 1.3 (1.1-1.8); Alkaline Phosphatase 73 U/L (38-126); Anion Gap 8.7 mEq/L (5-15); Aspartate Amino Transferase 28 U/L (14-36); Bilirubin,Total 0.8 mg/dl (0.2-1.3); Blood Urea Nitrogen 8 mg/dl (7-17); Calcium 9.5 mg/dl (8.4-10.2); Carbon Dioxide 24 mmol/L (22.0-30.0); Chloride 107 mmol/L (98-107); Creatinine Clearance Estimated 119 mL/min (50-200); Estimated Glomerular Filt Rate 112 ml/min (>60); GFR (African American) 135 ML/MIN (>60); Globulin 3.4 g/dL (1.3-3.2); Glucose 110 mg/dl (74-100); Magnesium 1.9 mg/dl (1.6-2.3); Potassium 3.7 mmoL/L (3.5-5.1); Sodium 136 mmol/L (136-145); Total Protein,Serum 7.7 g/dl (6.3-8.2)
[2024-04-18 15:22] LABS: NT Pro Brain Natriuretic Pep. 79.1 pg/mL (0-125)
[2024-04-18 15:24] LABS: HCG Qualitative, Serum Negative (Negative)
[2024-04-18 15:30] VITALS: BP 131/91; PULSE 83; O2SAT 95
[2024-04-18 15:30] LABS: Procalcitonin 0.073 ng/mL (0.0-2.0)
--- NOTE | 2024-04-18 15:59 | PC.NURSE ---
XR AT BEDSIDE
[2024-04-18 16:00] VITALS: BP 131/94; PULSE 85; O2SAT 96
--- NOTE | 2024-04-18 16:04 | PC.NURSE ---
Called for food tray for patient.
--- NOTE | 2024-04-18 16:06 | PC.NURSE ---
rounded on pt no needs at this time
[2024-04-18 16:19] VITALS: BP 131/94; PULSE 81; RESP 16; TEMP 36.7; O2SAT 97
== END 2024-04-18 16:20 | disposition home or self-care (01) ==
PROVIDERS: Physician Assistant; Emergency Provider Emergency Medicine; PCP Student in an Organized Health Care Education/Training Program
DX: J18.9 Pneumonia, unspecified organism (principal); R06.02 Shortness of breath; F17.290 Nicotine dependence, other tobacco product, uncomplicated; I10 Essential (primary) hypertension; E78.5 Hyperlipidemia, unspecified; R05.1 Acute cough
CPT/HCPCS: 71045; 80053; 82803; 83735; 83880; 84145; 84703; 85025; 87581; 87632; 87635; 87798; 93005; 96374; 96375; 99284; J0131; J1885; J7620

== ENCOUNTER 2025-04-24 20:29 | Emergency (ER) | payer OTHER, SELFPAY ==
[2025-04-24 20:36] VITALS: BP 174/95; PULSE 94; RESP 20; TEMP 37; O2SAT 97; BMI 50.8
--- NOTE | 2025-04-24 20:40 | ED_ITS ---
<Statement entered by Cesia Jernigan DO - 04/25/25 00:01> I was consulted by the ALEJO, and we discussed the complexity of the problems being addressed. I approved the treatment and management plan for this patient's care in the emergency department, thus performing a substantive portion of the medical decision making. Cesia Jernigan DO Discharge Plan Disposition Patient Disposition: Home, Self-Care Prescriptions Prescriptions: New naproxen 500 mg tablet 500 mg PO Q12H PRN (Reason: pain) Qty: 30 0RF clindamycin HCl [Cleocin HCl] 300 mg capsule 300 mg PO BID 7 Days Qty: 14 0RF ondansetron 4 mg tablet,disintegrating 4 mg PO Q8H PRN (Reason: nausea and vomiting) 5 Days Qty: 14 0RF No Action venlafaxine 37.5 mg capsule,extended release 24hr 37.5 mg PO DAILY hydroxyzine pamoate 25 mg capsule 25 mg PO HS metformin 500 mg tablet 500 mg PO DAILY hydrochlorothiazide 12.5 mg tablet 12.5 mg PO DAILY Qty: 60 4RF atorvastatin 10 mg tablet 10 mg PO DAILY Qty: 90 3RF ergocalciferol (vitamin D2) 1,250 mcg (50,000 unit) capsule 50,000 unit PO WEEKLY Patient Comments: TAKE 1 CAPSULE BY MOUTH EVERY THURSDAY naproxen 500 mg tablet 500 mg PO BID Qty: 30 0RF erythromycin 5 mg/gram (0.5 %) ointment 1.25 cm ophthalmic (eye) QID 7 Days Qty: 3.5 0RF doxycycline hyclate 100 mg capsule 100 mg PO BID 14 Days Qty: 28 0RF prednisone 50 mg tablet 50 mg PO DAILY 5 Days Qty: 5 0RF sxaybzdfwfvqhub-qiyzikhfx-PE [Bromfed DM] 2-30-10 mg/5 mL syrup 5 ml PO Q4H PRN (Reason: cold symptoms) Qty: 118 0RF Referrals Follow up/Referrals: Provider,Referral, MD [Primary Care Provider, Medical] - See instructions Activity Restrictions/Add. Instructions Additional Instructions/Restrictions: Use salt water gargles. Use the dental balls for pain. Take antibiotics as directed. May use ice or heat on your face for pain. Also take the naproxen every 12 hours. Take Tylenol every 4-6 hours. Use the Zofran as needed for nausea. Clinical Impressions Clinical Impression: Dental abscess Instructions Patient Instructions: Tooth Abscess Print Language Print Language: Japanese Discharge ED Provider: Cesia Jernigan General Adult HPI General Chief complaint: PAIN Stated complaint: Toothache Time Seen by Provider: 04/24/25 20:34 Mode of Arrival: Ambulatory Source of Information: Patient Description of Symptoms (Recalled from ER Triage Doc. by RN): upper left toothache x 2 weeks History of Present Illness HPI narrative: 39-year-old female presents to the ED today for complaint of dental pain on the left upper. She has used Orajel. She has had pain for 2 weeks. She says Thursday she has a dentist appointment. She has not been able to eat. She has had nausea and vomiting as well. Related Data Home Medications ?Medication ?Instructions ?Recorded ?Confirmed hydroxyzine pamoate 25 mg capsule 25 mg PO HS 12/24/23 03/02/24 metformin 500 mg tablet 500 mg PO DAILY Weight loss 12/24/23 03/02/24 venlafaxine 37.5 mg 37.5 mg PO DAILY 12/24/23 capsule,extended release 24 hr ergocalciferol (vitamin D2) 1,250 50,000 unit PO WEEKL Y 01/01/24 03/02/24 mcg (50,000 unit) capsule Previous Rx's ?Medication ?Instructions ?Recorded hydrochlorothiazide 12.5 mg tablet 12.5 mg PO DAILY #6 0 tabs 02/05/24 atorvastatin 10 mg tablet 10 mg PO DAILY #90 tabs 01/11 07/05 erythromycin 5 mg/gram (0.5 %) eye 1.25 cm ophthalmic (eye) QID 7 03/11/24 ointment days #3.5 grams naproxen 500 mg tablet 500 mg PO BID #30 tabs 03/11 eadfrnvrwtwcyzj-bzfrqugymmblrew-NM 5 ml PO Q4H PRN col d symptoms #118 04/18/24 2 mg-30 mg-10 mg/5 mL oral syrup mL (Bromfed DM) doxycycline hyclate 100 mg capsule 100 mg PO BID 14 da ys #28 caps 04/18/24 prednisone 50 mg tablet 50 mg PO DAILY 5 days #5 tab s 04/18/24 clindamycin HCl 300 mg capsule 300 mg PO BID 7 days #1 4 caps 04/24/25 (Cleocin HCl) naproxen 500 mg tablet 500 mg PO Q12H PRN pain #30 tabs 04/24/25 ondansetron 4 mg disintegrating 4 mg PO Q8H PRN nausea and 04/24/25 tablet vomiting 5 days #14 tabs Allergies Allergy/AdvReac Type Severity Reaction Status Date / Time No Known Allergies Allergy Verified 03/02/24 13:53 [facility] Disclaimer: The information contained in this section may have been updated after the patient was seen, as this information can be updated by other users. Medical History Depression PCO (posterior capsular opacification), bilateral Family history of breast cancer PGM, post-menopausal Contusion of hand Recurrent vaginitis High risk HPV infection Body mass index (BMI) greater than 40 Vitamin D deficiency Pre-diabetes Obesity HTN (hypertension), benign Sleep apnea in adult Obesity (BMI 30-39.9) Hyperlipidemia Surgical History No significant past surgical history Family History Other No significant family history Social History Smoking Status: Current every day smoker tobacco type: cigarettes packs per day: 1 and e-cigarettes alcohol intake: current alcohol intake frequency: a few times a week substance use type: denies use current occupational status: employed Travel in the last 8 weeks?: None household members: family housing: house Have you lived/traveled outside US in past 30 days?: No Contact w/someone who lives/traveled outside US past 30 days?: No Exposure to someone with infectious disease in past 14 days?: No Do you have a fever (greater than 100.4 F or 38 C)?: No Have you tested positive for COVID-19?: No Exposed to someone with COVID-19 in past 14 days?: No Do you have a sore throat?: No Do you have a cough?: No Do you have any weakness?: No Do you have any diarrhea?: No Are you experiencing any unusual bleeding?: No Do you have any muscle aches/pain?: No Do you have any abdominal pain?: No Are you experiencing loss of taste or smell?: No Other Medical History Have you received the Flu Vaccine for this season: No Have you received the Pneumonia Vaccine: No ROS Obtained: Yes Systems reviewed as appropriate & no additional complaints except as documented Constitutional Constitutional: Reports as per HPI Physical Exam General General appearance: alert and in distress Head Head exam: normocephalic Eye Eye exam: Present PERRL and EOMI ENT ENT exam: Present mucous membranes moist and other (Left upper broken tooth) Neck Neck exam: Present full ROM and trachea midline Respiratory Respiratory exam: Present normal lung sounds bilaterally Cardiovascular Cardiovascular exam: Present regular rate, normal rhythm, normal heart sounds, +S1 and +S2 Extremities Exam Extremities exam: Present normal inspection, full ROM and normal capillary refill Neurological Exam Neurological exam: Present alert, oriented X3 and normal gait Skin Skin exam: Present warm, dry and intact Medical Decision Making Medical Records Screening: Per USPSTF and CDC recommendations, given the prevalence of disease in our region, it is our hospital?s policy to screen for HIV and viral Hepatitis for all patients aged 18 and over and those with ongoing risk factors. Jakob Inquiry Pt receiving controlled substance: Yes Jakob was queried for this patient: No Risks and benefits of using a controlled substance: were discussed with pt by me Vital Signs: 04/24/25 20:36 04/24/25 20:52 Temperature 98.6 F 98.6 F Temperature Source Oral Oral Pulse Rate 94 H Pulse Rate [Right Brachial] 94 H Respiratory Rate 20 20 Blood Pressure 174/95 H Blood Pressure [Right Arm] 174/95 H Blood Pressure Mean [Right Arm] 121 Blood Pressure Source Automatic Cuff Blood Pressure Source [Right Arm] Automatic Cuff Blood Pressure Position Sitting Blood Pressure Position [Right Arm] Sitting 02 Sat by Pulse Oximetry 97 Oxygen Delivery Method Room Air Room Air Orders (Tests/Meds): ED MEDICATIONS Discontinued Medications Generic Name Dose Route Start Last Admin Trade Name Freq PRN Reason Stop Dose Admin Hydrocodone Bitart/Acetaminophen 2 tab 04/24/25 20:38 04/24/25 20:45 Hydrocodone/Apap 5/325 Mg Tablet PO 04/24/25 20:39 2 tab ONCE ONE Administration Clindamycin HCl 300 mg 04/24/25 20:38 04/24/25 20:45 Clindamycin 150mg Capsule PO 04/24/25 20:39 300 mg ONCE ONE Administration Lidocaine HCl 15 ml 04/24/25 20:38 04/24/25 20:45 Lidocaine 2% Viscous Nella 15ml Udc PO 04/24/25 20:39 15 ml ONCE ONE Administration ORDERS Category Date Time Status HIV Combo Routine Lab 04/24/25 20:39 Ordered Hepatitis C Ab Qual. W/ RFX Routine Lab 04/24/25 20:39 Ordered Medical Decision Narrative: patient is a 39-year-old female presenting to the emergency department for evaluation of dental pain. Patient is hemodynamically stable and nontoxic- appearing upon arrival, afebrile. Differential diagnosis includes dental pain, abscess. Workup considered but not completed as patient has a dentist appointment to take care of this in 48 hours. Will give patient dose of antibiotics and pain meds here and have her follow with dentist on Thursday. Will have patient continue to take naproxen and Tylenol at home with dental balls to take home. Use salt water gargles and return to ED if any other problems or concerns. Critical Care Critical Care Time Critical Care Time: No
--- NOTE | 2025-04-24 20:40 | PC.NURSE ---
Pt awake alert and oriented Tearful, Skin pink warm and dry Resp full and easy Speech clear and appropriate
[2025-04-24] MEDS: CLINDAMYCIN 150MG CAPSULE 300 MG PO (20:45)
[2025-04-24] MEDS: LIDOCAINE 2% VISCOUS SOL 15ML UDC 15 ML PO (20:45)
[2025-04-24] MEDS: HYDROCODONE/APAP 5/325 MG TABLET 2 TAB PO (20:45)
[2025-04-24 20:52] VITALS: BP 174/95; PULSE 94; RESP 20; TEMP 37; O2SAT 97
== END 2025-04-24 20:53 | disposition home or self-care (01) ==
PROVIDERS: Emergency Provider Emergency Medicine
DX: K04.7 Periapical abscess without sinus (principal); R11.2 Nausea with vomiting, unspecified; F17.210 Nicotine dependence, cigarettes, uncomplicated
CPT/HCPCS: 99283

== ENCOUNTER 2025-07-05 11:25 | Outpatient (CLI) | payer OTHER, SELFPAY ==
[2025-07-05 13:25] LABS: Hepatitis C Ab Qual. W/ RFX NEGATIVE (Negative)
[2025-07-06 08:13] LABS: Hepatitis B Surface Antigen Negative (Negative)
== END 2025-07-05 23:59 | disposition home or self-care (01) ==
LOC: LAB 11:25
PROVIDERS: PCP Nurse Practitioner Family; Visit Provider Obstetrics & Gynecology
DX: Z01.419 Encounter for gynecological examination (general) (routine) without abnormal findings (principal); A63.0 Anogenital (venereal) warts; Z11.3 Encounter for screening for infections with a predominantly sexual mode of transmission
CPT/HCPCS: 36415; 86803; 87340; 87389

== ENCOUNTER 2025-09-09 13:30 | Emergency (ER) | payer OTHER, SELFPAY ==
[2025-09-09 13:32] VITALS: BP 162/97; PULSE 76; RESP 20; TEMP 36.8; O2SAT 100; BMI 50.3
[2025-09-09 13:46] LABS: Microscopic, Urine URINE MICROSCOPIC (MICROSCOPIC)
--- OUTSIDE RECORDS SUMMARY | 2025-09-09 13:47 | XMS_ITS ---
Author Organization Unknown ENCOUNTERS Encounter Performer Location Date Diagnosis Diagnosis Status Emergency [facility] [address] [facility] [address] [place] [address] [id number] Pre Admit [place] [id number] [facility] [address] [place] [address] [id number] Pre Admit [facility] [address] [facility] [address] [place] [address] [id number] Emergency [address] [place] [address] [id number] [facility] [place] [id number] [facility] [address] [place] [address] [id number] [place] Pre Admit [facility] [address] [facility] [address] [place] [address] [id number] Pre Admit [facility] [address] [facility] [address] [place] [address] [id number] Emergency [address] [place] [address] [id number] [facility] (ED) [facility] [address] [facility] [address] [place] [address] [id number] [facility] [place] [id number] [facility] [address] [place] [address] [id number] [place] [facility] [address] [facility] [address] [place] [address] [id number] [facility] [facility] [place] [id number] [facility] [address] [place] [address] [id number] [facility] [place] [id number] [facility] [address] [place] [address] [id number] [place] *Note: Encounters from your own facility or health system may be excluded. Allergies, Adverse Reactions, Alerts Allergen Type Severity Identification Date Medications Name Date Quantity Days Supplied GPI Number
[2025-09-09 13:48] LABS: Bilirubin,Urine Negative (Negative); Color,Urine YELLOW (Yellow); Glucose,Urine (UA) Negative (Negative); Ketones,Urine Negative (Negative); Leukocyte Esterase,Urine Negative (Negative); PH,Urine 7.0 (5.0-8.5); Protein,Urine Negative (Negative); Specific Gravity, Urine 1.020 (1.005-1.030); Urobilinogen,Urine 0.2 EU/dl (0.2)
[2025-09-09 13:58] LABS: Bacteria,Urine Trace /lpf
--- NOTE | 2025-09-09 14:08 | ED_ITS ---
<Statement entered by Turner Regan MD - 09/09/25 15:19> I was consulted by the ALEJO, and we discussed the complexity of the problems being addressed. I approved the treatment and management plan for this patient's care in the emergency department, thus performing a substantive portion of the medical decision making. Turner Regan MD, BROCK, FACEP Discharge Plan Disposition Patient Disposition: Home, Self-Care Condition: Good Prescriptions Prescriptions: No Action hydrochlorothiazide 12.5 mg tablet 12.5 mg PO DAILY Qty: 60 4RF phentermine 37.5 mg tablet 37.5 mg PO DAILY Rx Instructions: must administer 30 minutes before or 1-2 hours after breakfast Referrals Follow up/Referrals: Tangela Avalos APRN [Primary Care Provider, Medical] - See instructions Activity Restrictions/Add. Instructions Additional Instructions/Restrictions: Follow-up with PCP for lab results Safe sex practices Clinical Impressions Clinical Impression: Possible exposure to STD Instructions Patient Instructions: Facts About Sexually Transmitted Infections, How to Detect and Treat STDs Print Language Print Language: Malian Discharge ED Provider: Turner Regan General Adult HPI General Chief complaint: Urogenital-Female Stated complaint: STD test Time Seen by Provider: 09/09/25 13:52 Mode of Arrival: Ambulatory Source of Information: Patient Description of Symptoms (Recalled from ER Triage Doc. by RN): lillian presents for STD/STI testing due to suspecious behaviors from her significant other. she stated she has had no new sexual contacts and only describes symptoms being foul smell . History of Present Illness HPI narrative: 40-year-old female presents for STD testing. Patient states she believes her significant other is cheating on her. Patient states she has had no new sexual contact. Patient states yesterday morning she got up and she had a different smell in her vagina and a odd taste in her mouth and after discussing with her mother she came in for STD testing. Related Data Home Medications ?Medication ?Instructions ?Recorded ?Confirmed phentermine 37.5 mg tablet 37.5 mg PO DAILY 07/05/25 0 07/05/25 Previous Rx's ?Medication ?Instructions ?Recorded hydrochlorothiazide 12.5 mg tablet 12.5 mg PO DAILY #6 0 tabs 02/05/24 Allergies Allergy/AdvReac Type Severity Reaction Status Date / Time No Known Allergies Allergy Verified 07/05/25 10:38 PFSH PFSH Disclaimer: The information contained in this section may have been updated after the patient was seen, as this information can be updated by other users. Medical History (Updated 09/09/25 @ 14:27 by Jonathan Chen ([facility]), TRANSITIONAL LIVING SPECIALIST) Morbid obesity with BMI of 45.0-49.9, adult Hirsutism Encounter for screening examination for sexually transmitted disease Encounter for routine gynecological examination Depression PCO (posterior capsular opacification), bilateral Family history of breast cancer Contusion of hand Recurrent vaginitis High risk HPV infection Body mass index (BMI) greater than 40 Vitamin D deficiency Pre-diabetes Obesity HTN (hypertension), benign Sleep apnea in adult Obesity (BMI 30-39.9) Hyperlipidemia Surgical History No significant past surgical history Family History Other No significant family history Social History Smoking Status: Light tobacco smoker tobacco type: cigarettes packs per day: 1 and e-cigarettes alcohol intake: current alcohol intake frequency: a few times a week substance use type: denies use current occupational status: employed Travel in the last 8 weeks?: None household members: family housing: house Have you lived/traveled outside US in past 30 days?: No Contact w/someone who lives/traveled outside US past 30 days?: No Exposure to someone with infectious disease in past 14 days?: No Do you have a fever (greater than 100.4 F or 38 C)?: No Have you tested positive for COVID-19?: No Exposed to someone with COVID-19 in past 14 days?: No Do you have a sore throat?: No Do you have a cough?: No Do you have any weakness?: No Do you have any diarrhea?: No Are you experiencing any unusual bleeding?: No Do you have any muscle aches/pain?: No Do you have any abdominal pain?: No Are you experiencing loss of taste or smell?: No Other Medical History Have you received the Flu Vaccine for this season: No Have you received the Pneumonia Vaccine: No ROS Obtained: Yes Systems reviewed as appropriate & no additional complaints except as documented Genitourinary Female Genitourinary: Reports system reviewed and no additional complaints, except as documented, Reports as per HPI and Reports vaginal odor Physical Exam General General appearance: alert and in no apparent distress Eye Eye exam: Present normal appearance and PERRL ENT ENT exam: Present normal exam Respiratory Respiratory exam: Present normal lung sounds bilaterally Cardiovascular Cardiovascular exam: Present regular rate and normal rhythm Neurological Exam Neurological exam: Present alert and oriented X3 Skin Skin exam: Present warm and intact Medical Decision Making Medical Records Medical records reviewed: Yes I reviewed the patient's medical records. Screening: Per USPSTF and CDC recommendations, given the prevalence of disease in our region, it is our hospital?s policy to screen for HIV and viral Hepatitis for all patients aged 18 and over and those with ongoing risk factors. Jakob Inquiry Pt receiving controlled substance: No Jakob was queried for this patient: No Vital Signs: 09/09/25 13:32 Temperature 98.2 F Temperature Source Oral Pulse Rate [Right Radial] 76 Respiratory Rate 20 Blood Pressure [Right Arm] 162/97 H Blood Pressure Mean [Right Arm] 118 Blood Pressure Source [Right Arm] Automatic Cuff Blood Pressure Position [Right Arm] Sitting 02 Sat by Pulse Oximetry 100 Oxygen Delivery Method Room Air Lab Data Lab results reviewed: Yes I reviewed the patient's lab results. Lab Results 09/09/25 13:38: Urine Color Yellow, Urine Appearance Clear, Urine pH 7.0, Ur Specific Hammond 1.020, Urine Protein Negative, Urine Glucose (UA) Negative, Urine Ketones Negative, Urine Blood Negative, Urine Nitrate Negative, Urine Bilirubin Negative, Urine Urobilinogen 0.2, Ur Leukocyte Esterase Negative, Urine RBC None, Urine WBC None, Ur Squamous Epith Cells 3-5, Urine Bacteria Trace Orders (Tests/Meds): ORDERS Category Date Time Status HIV Combo Stat Lab 09/09/25 14:05 Received Hepatitis Panel Stat Lab 09/09/25 14:05 Received RPR W/RFX Titers Stat Lab 09/09/25 14:05 Received UA [Urinalysis and Microscopic] Stat Lab 09/09/25 13:38 Completed Urine Chlam/Gono/Trich (H) Stat Lab 09/09/25 13:52 Ordered Medical Decision Narrative: In summary patient is a 40-year-old female who presents to the emergency department for evaluation of STD testing. Patient is hemodynamically stable upon arrival, afebrile. Unremarkable physical exam. Differential diagnosis includes yeast infection, STD,. Initial workup will be conducted with urine and labs. Initial inventions include labs sent. Initial workup reviewed by sd labs and urine. Upon repeat evaluation discussed with patient to follow-up with PCP for results. Given this patient is appropriate for discharge at this time will discharge home instructed to follow-up with PCP for test results. Critical Care Critical Care Time Critical Care Time: No
[2025-09-09 14:33] VITALS: BP 162/97; PULSE 76; RESP 17; TEMP 36.8; O2SAT 100
[2025-09-09 15:25] LABS: RPR W/RFX Titers Nonreactive (Nonreactive)
== END 2025-09-09 14:34 | disposition home or self-care (01) ==
PROVIDERS: Nurse Practitioner Family; Emergency Provider Student in an Organized Health Care Education/Training Program; PCP Nurse Practitioner Family
DX: Z20.2 Contact with and (suspected) exposure to infections with a predominantly sexual mode of transmission (principal)
CPT/HCPCS: 80074; 81001; 86592; 87389; 99283; 99284